=== PATIENT | female | born 1955 | race Caucasian/White ===

== ENCOUNTER → 2016-04-08 | Outpatient (REF) | payer BC ==
[~2016-04-08] MED LIST: ATOR1TAB19 PO; DIGO0.25 PO; DILT120C PO; FLEC50TA PO; LIDO5DIS36 TD; TRAM50TA2 PO; VITA100066 PO; XARE10TA PO
[2016-04-08 13:40] LABS: ALBUMIN 3.6 GM/DL (3.2-5.2); ALBUMIN/GLOBULIN RATIO 1.03 (1.00-1.93); ALKALINE PHOSPHATASE 93 U/L (45-117); ALT/SGPT 29 U/L (12-78); ANION GAP 9 MEQ/L (8-16); AST/SGOT 16 U/L (15-37); BILIRUBIN,TOTAL 0.5 MG/DL (0.2-1.0); BLOOD UREA NITROGEN 12 MG/DL (7-18); CALCIUM LEVEL 8.7 MG/DL (8.8-10.2); CARBON DIOXIDE LEVEL 30 MEQ/L (21-32); CHLORIDE LEVEL 103 MEQ/L (98-107); CHOLESTEROL LEVEL 196 MG/DL (<200); CREATININE FOR GFR 0.81 MG/DL (0.55-1.02); FREE T4 0.82 NG/DL (0.76-1.46); GLOMERULAR FILTRATION RATE > 60.0 (>45); GLUCOSE, FASTING 90 MG/DL (80-110); POTASSIUM SERUM 4.8 MEQ/L (3.5-5.1); SODIUM LEVEL 142 MEQ/L (136-145); TOTAL PROTEIN 7.1 GM/DL (6.4-8.2); TRIGLYCERIDES LEVEL 265 MG/DL (<150)
== END ==
LOC: M SFHCPLAZ 08:10
PROVIDERS: ATTEND Nurse Practitioner Family
DX: E78.00 Pure hypercholesterolemia, unspecified (principal); R53.83 Other fatigue

== ENCOUNTER → 2016-07-25 | Outpatient (CLI) | payer BC ==
--- NOTE | 2016-07-25 13:49 | REP ---
Lumbar spine five views: Comparisons 05/23 2015. Vertebral body heights and alignment are normal and unchanged. There are no vertebral body compression deformities. There is moderate degenerative disc disease at L2-3, unchanged. Of the disc spaces otherwise are unremarkable. There is no spondylolysis or spondylolisthesis. There is mild facet osteoarthritis, unchanged. The sacroiliac articulations and pedicles are unremarkable and unchanged. The mild scoliosis identified previously is no longer present. Impression: L2-3 degenerative disc disease. Mild facet osteoarthritis. Signed by Kenneth Alvarez MD 07/25/2016 01:40 P
== END ==
LOC: M WUC 12:46
PROVIDERS: ATTEND Physician Assistant
DX: M54.5 Low back pain (principal)

== ENCOUNTER → 2016-10-21 | Outpatient (CLI) | payer BC ==
[~2016-10-21] MED LIST changes: -LIDO5DIS36 TD; +LIDO5DIS41 TD
[2016-10-21 20:26] LABS: ALBUMIN/GLOBULIN RATIO 1.18 (1.00-1.93); ALKALINE PHOSPHATASE 82 U/L (45-117); ALT/SGPT 28 U/L (12-78); ANION GAP 6 MEQ/L (8-16); AST/SGOT 14 U/L (15-37); BILIRUBIN,TOTAL 0.5 MG/DL (0.2-1.0); BLOOD UREA NITROGEN 13 MG/DL (7-18); CALCIUM LEVEL 9.2 MG/DL (8.8-10.2); CARBON DIOXIDE LEVEL 28 MEQ/L (21-32); CHLORIDE LEVEL 105 MEQ/L (98-107); CREATININE FOR GFR 0.78 MG/DL (0.55-1.02); GLOMERULAR FILTRATION RATE > 60.0 (>45); GLUCOSE, FASTING 80 MG/DL (80-110); POTASSIUM SERUM 4.5 MEQ/L (3.5-5.1); SODIUM LEVEL 139 MEQ/L (136-145); TOTAL PROTEIN 7.4 GM/DL (6.4-8.2)
== END ==
LOC: M WUC 11:45
PROVIDERS: ATTEND Nurse Practitioner Family
DX: R53.83 Other fatigue (principal); I34.9 Nonrheumatic mitral valve disorder, unspecified; I48.0 Paroxysmal atrial fibrillation; E78.00 Pure hypercholesterolemia, unspecified; E55.9 Vitamin D deficiency, unspecified

== ENCOUNTER → 2017-01-01 | Outpatient (REF) | payer BC ==
[2017-01-01 17:13] LABS: MEAN CORPUSCULAR HEMOGLOBIN 30.3 pg (27.0-33.0); MEAN CORPUSCULAR HGB CONC 33.3 g/dl (32.0-36.5)
== END ==
LOC: M LAB REF 16:07
PROVIDERS: ATTEND Physician Assistant
DX: I48.0 Paroxysmal atrial fibrillation (principal)

== ENCOUNTER → 2017-01-05 | Outpatient (CLI) | payer BC ==
--- NOTE | 2017-01-05 10:38 | REP ---
BILATERAL SCREENING DIGITAL MAMMOGRAM: Comparison is 06/17/2011. The breast parenchyma is moderately dense, unchanged. There has been no interval development of masses, areas of structural distortion or clusters of microcalcifications typical of malignancy. IMPRESSION: There is no evidence of malignancy. BIRADS category 1, negative mammogram. BI-RADS/ACR category 1 mammogram. Negative. Routine annual screening mammography (for women over age 40). The patient should have a repeat mammogram in 1 year. This mammogram was interpreted with the aid of an FDA-approved computer-aided detection system. A. Negative x-ray reports should not delay biopsy if a dominant or clinically suspicious mass is present. B. Four to eight percent of cancers are not identified by x-ray. C. Adenosis and dense breasts may obscure an underlying neoplasm. The patient letter being requested is M1.
== END ==
LOC: M WHC 08:53
PROVIDERS: ATTEND Nurse Practitioner Family
DX: Z12.31 Encounter for screening mammogram for malignant neoplasm of breast (principal)

== ENCOUNTER → 2017-01-05 | Outpatient (REF) | payer BC | LOC: M SFHCWAGY 09:37 | PROVIDERS: ATTEND Nurse Practitioner Family | DX: Z12.4 Encounter for screening for malignant neoplasm of cervix (principal) ==

== ENCOUNTER → 2017-03-25 | Outpatient (REF) | payer BC | LOC: M SFHCPLAZ 07:45 | PROVIDERS: ATTEND Nurse Practitioner Family | DX: E55.9 Vitamin D deficiency, unspecified (principal); I48.0 Paroxysmal atrial fibrillation; R25.1 Tremor, unspecified; Z68.30 Body mass index [BMI] 30.0-30.9, adult; J01.00 Acute maxillary sinusitis, unspecified ==

== ENCOUNTER → 2017-03-26 | Outpatient (CLI) | payer BC ==
[2017-03-26 18:30] LABS: BASO % 0.3 % (0.0-1.0); EOS # 0.1 10^3/uL (0.0-0.50); EOS % 1.8 % (0.0-3.0); IMMATURE GRANULOCYTE % 0.3 % (0-0); LYMPH # 3.1 10^3/uL (1.5-4.5); LYMPH % 46.8 % (24.0-44.0); MEAN CORPUSCULAR HEMOGLOBIN 30.2 pg (27.0-33.0); MEAN CORPUSCULAR HGB CONC 33.2 g/dl (32.0-36.5); MEAN CORPUSCULAR VOLUME 91.1 fl (80.0-96.0); MONO # 0.7 10^3/uL (0.0-0.8); MONO % 11.1 % (0.0-5.0); NEUTROPHILS # 2.6 10^3/uL (1.8-7.7); NEUTROPHILS % 39.7 % (36.0-66.0); PLATELET COUNT, AUTOMATED 319 10^3/uL (150-450); RED CELL DISTRIBUTION WIDTH 13.5 % (11.5-14.5); WHITE BLOOD COUNT 6.6 10^3/uL (4.0-10.0)
[2017-03-26 18:54] LABS: ALBUMIN 3.7 GM/DL (3.2-5.2); ALBUMIN/GLOBULIN RATIO 0.97 (1.00-1.93); ALKALINE PHOSPHATASE 92 U/L (45-117); ALT/SGPT 30 U/L (12-78); ANION GAP 5 MEQ/L (8-16); AST/SGOT 22 U/L (7-37); BILIRUBIN,TOTAL 0.3 MG/DL (0.2-1.0); BLOOD UREA NITROGEN 13 MG/DL (7-18); CALCIUM LEVEL 8.5 MG/DL (8.8-10.2); CARBON DIOXIDE LEVEL 33 MEQ/L (21-32); CHLORIDE LEVEL 103 MEQ/L (98-107); CREATININE FOR GFR 0.84 MG/DL (0.55-1.02); DIGOXIN LEVEL 0.8 NG/ML (0.5-2.0); FREE T4 0.93 NG/DL (0.76-1.46); GLOMERULAR FILTRATION RATE > 60.0 (>45); GLUCOSE, FASTING 88 MG/DL (80-110); POTASSIUM SERUM 4.5 MEQ/L (3.5-5.1); SODIUM LEVEL 141 MEQ/L (136-145); TOTAL PROTEIN 7.5 GM/DL (6.4-8.2)
== END ==
LOC: M WUC 16:49
PROVIDERS: ATTEND Nurse Practitioner Family
DX: J01.00 Acute maxillary sinusitis, unspecified (principal); R25.1 Tremor, unspecified; Z68.30 Body mass index [BMI] 30.0-30.9, adult; E55.9 Vitamin D deficiency, unspecified; I48.0 Paroxysmal atrial fibrillation
CPT/HCPCS: 36415; 80053; 80162; 82306; 84439; 84443; 85025; G0480

== ENCOUNTER → 2017-10-15 | Outpatient (REF) | payer BC | LOC: M SFHCPLAZ 15:18 | DX: R22.1 Localized swelling, mass and lump, neck (principal) | CPT/HCPCS: G0463 ==

== ENCOUNTER → 2017-10-25 | Outpatient (CLI) | payer BC ==
[~2017-10-25] MED LIST changes: -ATOR1TAB19 PO; -DIGO0.25 PO; -DILT120C PO; -FLEC50TA PO; -LIDO5DIS41 TD; +LIDOCAINE 1% MDV 20ML VIAL As Ordered; -TRAM50TA2 PO; -VITA100066 PO; -XARE10TA PO
== END ==
LOC: M RAD 16:30
DX: R22.1 Localized swelling, mass and lump, neck (principal); M25.541 Pain in joints of right hand; M25.542 Pain in joints of left hand
CPT/HCPCS: 73130

== ENCOUNTER → 2017-10-29 | Outpatient (CLI) | payer BC ==
[2017-10-29 17:09] LABS: BASO # 0.1 10^3/uL (0.0-0.2); BASO % 0.6 % (0.0-1.0); EOS # 0.3 10^3/uL (0.0-0.50); EOS % 2.8 % (0.0-3.0); HEMATOCRIT 41.4 % (36.0-47.0); HEMOGLOBIN 13.9 g/dl (12.0-15.5); IMMATURE GRANULOCYTE % 0.3 % (0-3.0); LYMPH # 3.1 10^3/uL (1.5-4.5); LYMPH % 33.8 % (24.0-44.0); MEAN CORPUSCULAR HEMOGLOBIN 30.5 pg (27.0-33.0); MEAN CORPUSCULAR HGB CONC 33.6 g/dl (32.0-36.5); MONO # 0.7 10^3/uL (0.0-0.8); MONO % 7.8 % (0.0-5.0); NEUTROPHILS # 5.1 10^3/uL (1.8-7.7); NEUTROPHILS % 54.7 % (36.0-66.0); PLATELET COUNT, AUTOMATED 378 10^3/uL (150-450); RED BLOOD COUNT 4.55 10^6/uL (4.00-5.40); RED CELL DISTRIBUTION WIDTH 14.2 % (11.5-14.5); WHITE BLOOD COUNT 9.2 10^3/uL (4.0-10.0)
== END ==
LOC: M WUC 12:48
DX: R22.1 Localized swelling, mass and lump, neck (principal)
CPT/HCPCS: 85025

== ENCOUNTER → 2017-11-12 | Outpatient (CLI) | payer BC ==
[~2017-11-12] MED LIST changes: +ISOVUE-370 76% 100ML VIAL (Q9967) As Ordered; -LIDOCAINE 1% MDV 20ML VIAL As Ordered
== END ==
LOC: M RAD 09:04
DX: R22.1 Localized swelling, mass and lump, neck (principal); M47.892 Other spondylosis, cervical region
CPT/HCPCS: Q9967

== ENCOUNTER → 2018-04-08 | Outpatient (CLI) | payer BC ==
[~2018-04-08] MED LIST changes: +ATOR1TAB19 PO; +DIGO0.25 PO; +DILT120C77 PO; +FLEC50HA PO; -ISOVUE-370 76% 100ML VIAL (Q9967) As Ordered; +LIDO5DIS41 TD; +TRAM50TA2 PO; +VITA100066 PO; +XARE10TA PO
--- NOTE | 2018-04-08 12:52 | REP ---
Pelvic sonography: History: Postmenopausal bleeding. Findings: Transabdominal and transvaginal scanning are performed. Uterine dimensions are normal at 6.5 x 3.2 x 4.9 cm. Endometrial echo is poorly defined but measures up to 12 mm in thickness which is abnormal. No focal uterine mass is seen. No free fluid is noted. Visualized bladder valles are smooth. Normal ovaries are seen. Right ovary measures 2.5 x 1.6 x 1.2 cm. Left ovary dimensions are 2.5 x 0.9 x 1.9 cm. Doppler flow is normal in both ovaries with resistive indices recorded at 0.40 on the right and 0.44 on the left. Impression: Mild thickening of the endometrium noted in this postmenopausal female. Endometrial hyperplasia/neoplasia cannot be excluded. Otherwise negative.
== END ==
LOC: M WHC 08:11
PROVIDERS: ATTEND Nurse Practitioner Family
DX: N95.0 Postmenopausal bleeding (principal); R10.32 Left lower quadrant pain

== ENCOUNTER → 2018-04-18 | Outpatient (REF) | payer BC | LOC: M SFHCWAGY 13:22 | PROVIDERS: ATTEND Nurse Practitioner Family | DX: N95.0 Postmenopausal bleeding (principal) ==

== ENCOUNTER → 2018-05-24 | Outpatient (CLI) | payer BC ==
--- NOTE | 2018-05-24 16:15 | REPMRS ---
Patient History The patient states she had a clinical breast exam in 05/2018. Patient is postmenopausal. No known family history of cancer. No Hormone Replacement Therapy Digital Woman Screen Mammo: May 24, 2018 - Exam #: [id number] Bilateral CC and MLO view(s) were taken. Technologist: Alicia Rios, Technologist Prior study comparison: January 05, 2017, digital woman screen mammo performed at [facility]. December 24, 2015, digital woman screen mammo performed at [facility]. FINDINGS: The breast tissue is heterogeneously dense. This may lower the sensitivity of mammography. There has been no change in the appearance of the mammogram from the prior studies. There is a moderate amount of residual fibroglandular tissue which is fairly symmetric. There is no interval development of dominant mass, architectural distortion, or clustered microcalcification typical of malignancy. Stable skin lesion projects over the right upper inner quadrant. 3-D tomosynthesis shows no additional findings. The patient's Tyrer-Cuzick lifetime risk assessment score is 5 %. No significant changes when compared with prior studies. Assessment: BI-RADS/ACR category 2 mammogram. Benign Findings. Recommendation Routine screening mammogram in 1 year (for women over age 40). This mammogram was interpreted with the aid of an FDA-approved computer-aided dectection system. A. Negative x-ray reports should not delay biopsy if a dominant or clinically suspicious mass is present. B. Four to eight percent of cancers are not identified by mammography. C. Adenosis and dense breast may obscure an underlying neoplasm. Electronically Signed By: Elliot Morales MD 05/24/18 [id number]
== END ==
LOC: M WHC 10:46
PROVIDERS: ATTEND Nurse Practitioner Family
DX: Z12.31 Encounter for screening mammogram for malignant neoplasm of breast (principal)

== ENCOUNTER → 2018-06-22 | Outpatient (CLI) | payer BC ==
[~2018-06-22] MED LIST changes: +LANO62.5 PO
[2018-06-22 14:22] LABS: HEMATOCRIT 42.9 % (36.0-47.0); HEMOGLOBIN 14.2 g/dl (12.0-15.5); MEAN CORPUSCULAR HGB CONC 33.1 g/dl (32.0-36.5); MEAN CORPUSCULAR VOLUME 90.5 fl (80.0-96.0); PLATELET COUNT, AUTOMATED 348 10^3/uL (150-450); RED BLOOD COUNT 4.74 10^6/uL (4.00-5.40); WHITE BLOOD COUNT 8.1 10^3/uL (4.0-10.0)
[2018-06-22 14:32] LABS: ALBUMIN 3.6 GM/DL (3.2-5.2); ALT/SGPT 25 U/L (12-78); BILIRUBIN,TOTAL 0.6 MG/DL (0.2-1.0); BLOOD UREA NITROGEN 14 MG/DL (7-18); CALCIUM LEVEL 9.1 MG/DL (8.8-10.2); CARBON DIOXIDE LEVEL 31 MEQ/L (21-32); CHLORIDE LEVEL 107 MEQ/L (98-107); CHOLESTEROL LEVEL 190 MG/DL (<200); CHOLESTEROL RISK RATIO 4.418 (<5); CREATININE FOR GFR 0.83 MG/DL (0.55-1.30); GLOMERULAR FILTRATION RATE > 60.0 (>45); GLUCOSE, FASTING 95 MG/DL (70-100); HDL CHOLESTEROL 43 MG/DL (>40); LDL CHOLESTEROL 116 MG/DL (<100); MAGNESIUM LEVEL 2.3 MG/DL (1.8-2.4); NON-HDL-C 147 MG/DL; POTASSIUM SERUM 4.8 MEQ/L (3.5-5.1); SODIUM LEVEL 143 MEQ/L (136-145); TOTAL PROTEIN 6.9 GM/DL (6.4-8.2); TRIGLYCERIDES LEVEL 154 MG/DL (<150)
== END ==
LOC: M WUC 08:33
PROVIDERS: ATTEND Physician Assistant
DX: I48.0 Paroxysmal atrial fibrillation (principal); E78.2 Mixed hyperlipidemia

== ENCOUNTER 2018-06-30 10:35 | Day surgery (SDC) | payer BC ==
[~2018-06-30] VITALS: Ht 177.8 cm; Wt 95.7 kg
[~2018-06-30 10:35] MED LIST changes: +LIDOCAINE 1% MDV 20ML VIAL SQ PRN; +LR 1,000 ML IV ONE
[2018-06-30 11:22] LABS: INR 1.02; PROTHROMBIN TIME 13.5 SECONDS (12.1-14.4)
[2018-06-30 11:23] LABS: PARTIAL THROMBOPLASTIN TIME 28.5 SECONDS (25.4-37.6)
[2018-06-30] MEDS ORDERED: LIDOCAINE 2% INJ 100 MG/5 ML SDV (FOR ANES.) As Ordered ONE (13:26)
[2018-06-30] MEDS ORDERED: fentaNYL 100 MCG/2 ML INJECTION (J3010) As Ordered ONE (13:26)
[2018-06-30] MEDS ORDERED: MIDAZOLAM INJ 2 MG/2 ML VIAL (J2250) As Ordered ONE (13:26)
[2018-06-30] MEDS ORDERED: PROPOFOL 200 MG/20 ML VIAL As Ordered ONE (13:26)
[2018-06-30] MEDS ORDERED: dexameTHASONE 4 MG/ML 1ML VIAL (J1100) As Ordered ONE (13:26)
[2018-06-30] MEDS ORDERED: ONDANSETRON 4MG/2ML VIAL (J2405) As Ordered ONE ×2 (13:27→14:17)
[2018-06-30] MEDS ORDERED: PERCOCET 5MG/325MG TAB As Ordered ONE (14:17)
[2018-06-30] MEDS ORDERED: fentaNYL 100 MCG/2 ML INJECTION (J3010) IV PRN (14:30)
[2018-06-30] MEDS ORDERED: ONDANSETRON 4MG/2ML VIAL (J2405) IV PRN (14:30)
[2018-06-30] MEDS ORDERED: LR 1,000 ML IV SCH ×2 (14:30)
[2018-06-30] MEDS ORDERED: PERCOCET 5MG/325MG TAB PO PRN (14:30)
[2018-06-30] MEDS ORDERED: IBUPROFEN 600 MG TAB PO PRN (14:30)
[2018-06-30] MEDS ORDERED: KETOROLAC 30 MG/ML VIAL (J1885) As Ordered ONE (14:42)
[2018-06-30] MEDS ORDERED: KETOROLAC 30 MG/ML VIAL (J1885) IV PRN (15:00)
[2018-06-30 15:05] VITALS: BP 153/72
--- NOTE | 2018-07-01 09:29 | RO ---
DATE OF PROCEDURE: 06/30/2018 PREPROCEDURE DIAGNOSIS: Post menopausal bleeding with abnormal sonogram. POSTPROCEDURE DIAGNOSIS: Post menopausal bleeding with abnormal sonogram. PROCEDURE: Dilation and curettage with MyoSure resection. SURGEON: Dr. Margot Garcia. LOGISTICIAN: None. ANESTHESIA: Laryngeal mask anesthesia (LMA). FINDINGS: Reassuring endometrial cavity. DESCRIPTION OF PROCEDURE: Elo was brought to the operating room where sufficient LMA anesthesia was induced and she was prepped, draped and positioned in the normal fashion. The bladder emptied and the anterior aspect of the cervix grasped with a single tooth tenaculum. This uterus would be assessable from the below should that be necessary. The cervix was carefully dilated and the hysteroscope introduced. A normal endometrial contour with the exception of a minor anterior midline, sort of deviation was noted. This could be the distortion of a broad-based fibroid or simple the patient's own anatomy. There were no obvious polyps or vascular lesions or ulcerations of the endometrium. There was a little bit of erythema consistent with patient's history but really a fairly thin atrophic endometrium as expected. Normal tubal ostia were seen and the cervix is very much normal as well. Given the scant tissue and that broad-based deviation anteriorly, the MyoSure light was used to resect that area. It does appear kind of fibrous, so it could be fibroid or it could just be the patient's uterus is shaped in that fashion but it was readily resected and no undue bleeding was encountered we also resected around the rest of the endometrium and tried to optimize are sample in that fashion so that we could be confident for pathology. We also, after resecting with the MyoSure light, a couple of passes with the curet as well and all of that tissue went to the pathologist for evaluation. The hysteroscopy dilation and curettage was completed. ESTIMATED BLOOD LOSS: May be 4 mL. FLUID REPLACEMENT: Crystalloid. SPECIMEN: Endometrium. COMPLICATIONS: None. CONDITION AND DISPOSITION: Elo tolerated the procedure well and was recovering in the recovery room in good condition.
== END 2018-06-30 15:35 | disposition home or self-care (01) ==
LOC: M SDC 10:35
PROVIDERS: ATTEND Obstetrics & Gynecology
DX: N95.0 Postmenopausal bleeding (principal); R93.5 Abnormal findings on diagnostic imaging of other abdominal regions, including retroperitoneum; I48.0 Paroxysmal atrial fibrillation; E78.5 Hyperlipidemia, unspecified; G47.33 Obstructive sleep apnea (adult) (pediatric); L40.9 Psoriasis, unspecified; I34.1 Nonrheumatic mitral (valve) prolapse; I77.810 Thoracic aortic ectasia; E55.9 Vitamin D deficiency, unspecified; M12.9 Arthropathy, unspecified; R32 Unspecified urinary incontinence; R06.83 Snoring; Z88.8 Allergy status to other drugs, medicaments and biological substances; Z79.899 Other long term (current) drug therapy; Z79.01 Long term (current) use of anticoagulants; Z86.19 Personal history of other infectious and parasitic diseases; Z78.0 Asymptomatic menopausal state; Z87.891 Personal history of nicotine dependence
CPT/HCPCS: 36415; 58558; 85610; 85730; 88305; J1100; J1885; J2250; J2405; J3010

== ENCOUNTER → 2018-08-18 | Outpatient (REF) | payer BC ==
[~2018-08-18] MED LIST changes: -LIDOCAINE 1% MDV 20ML VIAL SQ PRN; -LR 1,000 ML IV ONE
[2018-08-18 12:27] LABS: ALBUMIN 3.6 GM/DL (3.2-5.2); ALT/SGPT 29 U/L (12-78); BILIRUBIN,TOTAL 0.5 MG/DL (0.2-1.0); BLOOD UREA NITROGEN 12 MG/DL (7-18); CALCIUM LEVEL 8.8 MG/DL (8.8-10.2); CARBON DIOXIDE LEVEL 30 MEQ/L (21-32); CHLORIDE LEVEL 104 MEQ/L (98-107); CHOLESTEROL LEVEL 186 MG/DL (<200); CHOLESTEROL RISK RATIO 4.428 (<5); CREATININE FOR GFR 0.78 MG/DL (0.55-1.30); GLOMERULAR FILTRATION RATE > 60.0 (>45); GLUCOSE, FASTING 100 MG/DL (70-100); HDL CHOLESTEROL 42 MG/DL (>40); LDL CHOLESTEROL 96 MG/DL (<100); NON-HDL-C 144 MG/DL; POTASSIUM SERUM 4.6 MEQ/L (3.5-5.1); SODIUM LEVEL 139 MEQ/L (136-145); TOTAL PROTEIN 7.2 GM/DL (6.4-8.2); TRIGLYCERIDES LEVEL 241 MG/DL (<150)
[2018-08-19 09:55] LABS: RUBELLA IgG QUALITATIVE IMMUNE (IMMUNE)
[2018-08-20 08:06] LABS: MUMPS VIRUS IgG ANTIBODY 21.1 AU/mL (Immune >10.9); RUBEOLA IgG ANTIBODY >300.0 AU/mL (Immune >29.9)
== END ==
LOC: M SFHCPLAZ 08:52
PROVIDERS: ATTEND Nurse Practitioner Family
DX: Z78.9 Other specified health status (principal)

== ENCOUNTER → 2019-04-07 | Outpatient (REF) | payer BC ==
[2019-04-07 17:28] LABS: HEMATOCRIT 43.6 % (36.0-47.0); HEMOGLOBIN 14.3 g/dl (12.0-15.5); MEAN CORPUSCULAR HEMOGLOBIN 30.2 pg (27.0-33.0); MEAN CORPUSCULAR HGB CONC 32.8 g/dl (32.0-36.5); MEAN CORPUSCULAR VOLUME 92.2 fl (80.0-96.0); PLATELET COUNT, AUTOMATED 378 10^3/uL (150-450); RED BLOOD COUNT 4.73 10^6/uL (4.00-5.40); WHITE BLOOD COUNT 9.1 10^3/uL (4.0-10.0)
[2019-04-07 17:53] LABS: C REACTIVE PROTEIN QUANTITATIV 0.86 MG/DL (0.00-0.30); FREE T4 0.83 NG/DL (0.76-1.46); RHEUMATOID FACTOR QUANT < 10.0 IU/ML (<15.0)
[2019-04-07 19:33] LABS: ERYTHROCYTE SEDIMENTATION RATE 16 mm/hr (0-30)
[2019-04-11 00:06] LABS: ANA (HEP2) Negative (.)
== END ==
LOC: M SFHCPLAZ 15:35
PROVIDERS: ATTEND Physician Assistant
DX: L65.9 Nonscarring hair loss, unspecified (principal); M25.449 Effusion, unspecified hand

== ENCOUNTER → 2019-06-01 | Outpatient (REF) | payer BC | LOC: M SFHCWAGY 13:13 | PROVIDERS: ATTEND Nurse Practitioner Family | DX: Z12.4 Encounter for screening for malignant neoplasm of cervix (principal) | CPT/HCPCS: 87624; G0123 ==

== ENCOUNTER → 2019-06-01 | Outpatient (CLI) | payer BC | LOC: M WHC 08:51 | PROVIDERS: ATTEND Physician Assistant | DX: Z13.820 Encounter for screening for osteoporosis (principal) ==

== ENCOUNTER → 2019-06-01 | Outpatient (CLI) | payer BC ==
--- NOTE | 2019-06-01 10:25 | REPMRS ---
Patient History The patient states she had a clinical breast exam in 05/2019. No known family history of cancer. No Hormone Replacement Therapy Digital Woman Screen Mammo: June 01, 2019 - Exam #: [id number] Bilateral CC and MLO view(s) were taken. Technologist: Alicia Rios, Technologist Prior study comparison: May 24, 2018, bilateral digital woman screen mammo performed at [facility]. January 05, 2017, digital woman screen mammo performed at [facility]. December 24, 2015, digital woman screen mammo performed at [facility]. FINDINGS: The breast tissue is heterogeneously dense. This may lower the sensitivity of mammography. There is a moderate amount of heterogeneously dense fibroglandular tissue which is fairly symmetric. There is no interval development of dominant mass, architectural distortion, or grouped microcalcification typical of malignancy. There has been no change in the appearance of the mammogram from the prior studies. 3-D tomosynthesis shows no additional findings. Assessment: BI-RADS/ACR category 1 mammogram. Negative Mammogram. Recommendation Routine screening mammogram of both breasts in 1 year (for women over age 40). This patient's Lifetime Breast Cancer RIsk is estimated at 4.7 %. This mammogram was interpreted with the aid of an FDA-approved computer-aided dectection system. Electronically Signed By: Messi Cyr MD 06/01/19 1150
== END ==
LOC: M WHC 08:46
PROVIDERS: ATTEND Nurse Practitioner Family
DX: Z12.31 Encounter for screening mammogram for malignant neoplasm of breast (principal)

== ENCOUNTER → 2019-08-11 | Outpatient (CLI) | payer BC ==
--- NOTE | 2019-08-11 09:41 | REPPI ---
RIGHT KNEE SERIES: Two views. HISTORY: Right knee pain. FINDINGS: AP and lateral views of the right knee demonstrate normal joint spaces and normal alignment. There is nonarticular spurring at the superior pole the patella on the lateral film consistent with chronic quadriceps tendonitis tendinosis. There is no evidence of joint effusion. There is minimal lipping of the articular margin of the superior pole the patella as well. IMPRESSION: Minimal patellar spurring. Quadriceps tendonitis tendinosis spurring on the superior pole the patella as well. Otherwise negative. No acute abnormality. Electronically Signed by Greg Cyr MD 08/11/2019 12:45 P
== END ==
LOC: M PLAIMG 08:33
PROVIDERS: ATTEND Physician Assistant
DX: M25.761 Osteophyte, right knee (principal)

== ENCOUNTER → 2019-12-25 | Outpatient (CLI) | payer MEDICARE ==
[2019-12-25 10:15] LABS: ALBUMIN 3.5 GM/DL (3.2-5.2); ALT/SGPT 32 U/L (12-78); BILIRUBIN,TOTAL 0.6 MG/DL (0.2-1.0); BLOOD UREA NITROGEN 13 MG/DL (7-18); CALCIUM LEVEL 9.2 MG/DL (8.8-10.2); CARBON DIOXIDE LEVEL 29 MEQ/L (21-32); CHLORIDE LEVEL 105 MEQ/L (98-107); CHOLESTEROL LEVEL 209 MG/DL (<200); CHOLESTEROL RISK RATIO 4.644 (<5); CREATININE FOR GFR 0.88 MG/DL (0.55-1.30); GLOMERULAR FILTRATION RATE > 60.0 (>45); GLUCOSE, FASTING 92 MG/DL (70-100); HDL CHOLESTEROL 45 MG/DL (>40); LDL CHOLESTEROL 116 MG/DL (<100); NON-HDL-C 164 MG/DL; POTASSIUM SERUM 4.7 MEQ/L (3.5-5.1); SODIUM LEVEL 140 MEQ/L (136-145); TRIGLYCERIDES LEVEL 240 MG/DL (<150)
[2019-12-25 11:19] LABS: TOTAL 25(OH) VITAMIN D 27.1 NG/ML (30.0-100.0)
== END ==
LOC: M LAB 08:43
PROVIDERS: ATTEND Physician Assistant
DX: E78.5 Hyperlipidemia, unspecified (principal); E55.9 Vitamin D deficiency, unspecified

== ENCOUNTER → 2020-04-23 | Outpatient (CLI) | payer MEDICARE ==
[2020-04-23 12:10] LABS: HEMATOCRIT 44.1 % (36.0-47.0); HEMOGLOBIN 14.2 g/dl (12.0-15.5); MEAN CORPUSCULAR HEMOGLOBIN 29.6 pg (27.0-33.0); MEAN CORPUSCULAR HGB CONC 32.2 g/dl (32.0-36.5); MEAN CORPUSCULAR VOLUME 92.1 fl (80.0-96.0); PLATELET COUNT, AUTOMATED 384 10^3/uL (150-450); RED BLOOD COUNT 4.79 10^6/uL (4.00-5.40); WHITE BLOOD COUNT 9.1 10^3/uL (4.0-10.0)
[2020-04-23 12:52] LABS: ALBUMIN 3.8 GM/DL (3.2-5.2); ALT/SGPT 29 U/L (12-78); BILIRUBIN,TOTAL 0.6 MG/DL (0.2-1.0); BLOOD UREA NITROGEN 15 MG/DL (7-18); CALCIUM LEVEL 9.4 MG/DL (8.8-10.2); CARBON DIOXIDE LEVEL 32 MEQ/L (21-32); CHLORIDE LEVEL 104 MEQ/L (98-107); CHOLESTEROL LEVEL 209 MG/DL (<200); CHOLESTEROL RISK RATIO 4.446 (<5); CREATININE FOR GFR 0.89 MG/DL (0.55-1.30); GLOMERULAR FILTRATION RATE > 60.0 (>45); GLUCOSE, FASTING 94 MG/DL (70-100); HDL CHOLESTEROL 47 MG/DL (>40); LDL CHOLESTEROL 110 MG/DL (<100); MAGNESIUM LEVEL 2.2 MG/DL (1.8-2.4); NON-HDL-C 162 MG/DL; POTASSIUM SERUM 4.8 MEQ/L (3.5-5.1); SODIUM LEVEL 139 MEQ/L (136-145); TOTAL PROTEIN 7.4 GM/DL (6.4-8.2); TRIGLYCERIDES LEVEL 262 MG/DL (<150)
== END ==
LOC: M WUC 08:52
PROVIDERS: ATTEND Physician Assistant
DX: I48.0 Paroxysmal atrial fibrillation (principal); E78.2 Mixed hyperlipidemia

== ENCOUNTER → 2020-05-26 | Outpatient (CLI) | payer MEDICARE ==
[~2020-05-26] MED LIST changes: +D31000TA2 PO
== END ==
LOC: M LABSMTC 08:19
PROVIDERS: ATTEND Anesthesiology
DX: Z01.818 Encounter for other preprocedural examination (principal); Z11.52 Encounter for screening for COVID-19

== ENCOUNTER 2020-05-31 07:52 | Day surgery (SDC) | payer MEDICARE ==
[~2020-05-31] VITALS: Ht 177.8 cm; Wt 99.8 kg
[~2020-05-31 07:52] MED LIST changes: +NS 1,000 ML IV ONE
--- OUTSIDE RECORDS SUMMARY | 2020-05-31 07:57 | CCD | Continuity of Care Document ---
Author Author Elo NICHOLSON PA-C Organization Unknown Address [address] [place] [address], [place] [place] [address] Phone [phone] Care Team Providers Care Fixed Income Analyst Name Role Phone Shaun Cornell MD AUTM [phone] Kobe Farooq DO AUTM [phone] Shahidpaula David DO AUTM [phone] Porfirio Mario DO AUTM [phone] Joyce Hernández PA-C AUTM [phone] Problems Active Problems Provider Date Paroxysmal atrial fibrillation JUMANA Luico-C Onset: 0 05/28/2016 Mitral valve disorder Chris Turner MD Onset: 07/05/2012 Aortic valve disorder JUMANA Lucio-C Onset: 11/26/2016 Aortic root dilatation JUMANA Lucio-C Onset: 7 Electrocardiogram abnormal Chris Turner MD Onset: 2012 Obstructive sleep apnea syndrome Chris Turner MD Onset: 10/11/2013 Mixed hyperlipidemia JUAMNA Lucio-C Onset: 05/28/2016 Obesity JUMANA Lucio-C Onset: 05/28/2016 Dietary management surveillance Tiffanie Nicholson PA-C Onset: 11/26/2016 Social History Type Date Description Comments Sex Unknown ETOH Use Consumes Wine 1 per week Tobacco Use Start: Unknown End: Unknown Patient is a former smoker Stopped in 1992. Smoked for 15 years. 1ppd Smoking Status Reviewed: 10/26/19 Patient is a former smoker St opped in 1992. Smoked for 15 years. 1ppd Exercise Type/Frequency Does housework twice a w [place] Exercise Type/Frequency Does yardwork twice a we [place] Exercise Type/Frequency Walks sporadically Exercise Limitations Joint Pain Right Ankle , Torn meniscus in right knee Allergies, Adverse Reactions, Alerts Active Allergies Reaction Severity Comments Date Atenolol bradycardia 07/05/2012 Beta Adrenergic Blockers bradycardia 05/2012 Medications Active Medications SIG Qnty Indications Ordering Provide r Date Ibuprofen 200mg Capsules prn Unknown 10/25/2019 Atorvastatin Calcium 10mg Tablets 1 by mouth every day 90tabs E78.2 Chris Turner MD 11/20/2015 Digox 250mcg Tablets Take One Tablet By Mouth Every Day 90tabs I48.0 Chris Turner MD 08/01/2013 Xarelto 20mg Tablets 1 by mouth every day 90tabs I48.0 Chris Turner MD 09/30/2012 Diltiazem HCL ER Coated Beads 120mg Caps ER 24HR 1 by mouth every day 90caps I48.0 Chris Turner MD 0 09/30/2012 Flecainide Acetate 50mg Tablets Take One Tablet By Mouth Twice Daily 180tabs I48.0 Chris Turner MD 0 08/01/2012 Metamucil 0.52gm Capsules 8oz of liq. po 3 times daily as needed Shaun Cornell MD Immunizations Description No Information Available Vital Signs Date Vital Result Comment 10/26/2019 11:23am Weight 223.00 lb Home Weight 225lb Home weight Height 70 inches 5'10" BMI (Body Mass Index) 32.0 kg/m2 Heart Rate 52 /min Regular Respiratory Rate 16 /min BP Systolic Right Arm 118 mmHg sitting, large cuf f BP Diastolic Right Arm 68 mmHg sitting, large cu ff BP Systolic Left Arm 116 mmHg sitting BP Diastolic Left Arm 68 mmHg sitting 04/28/2019 8:19am Weight 218.00 lb Home Weight 220lb home weight Height 70 inches 5'10" BMI (Body Mass Index) 31.3 kg/m2 Heart Rate 54 /min Regular Respiratory Rate 16 /min BP Systolic Right Arm 134 mmHg Sitting, large cuf f BP Diastolic Right Arm 64 mmHg Sitting, large cu ff BP Systolic Left Arm 128 mmHg Sitting BP Diastolic Left Arm 64 mmHg Sitting Results Test Acquired Date Facility Test Result H/L Range Note Comprehensive Metabolic Profil 04/23/2020 [facility] [phone] Glucose, Fasting 94 mg/dL Normal 70-100 Blood Urea Nitrogen 15 mg/dL Normal 7-18 Creatinine For GFR 0.89 mg/dL Normal 0.55-1.30 Glomerular Filtration Rate > 60.0 Normal >45 1 Sodium Level 139 mEq/L Normal 136-145 Potassium Serum 4.8 mEq/L Normal 3.5-5.1 Chloride Level 104 mEq/L Normal 98-107 Carbon Dioxide Level 32 mEq/L Normal 21-32 Anion Gap 3 mEq/L Low 8-16 Calcium Level 9.4 mg/dL Normal 8.8-10.2 Ast/Sgot 12 U/L Normal 7-37 Alt/SGPT 29 U/L Normal 12-78 Alkaline Phosphatase 91 U/L Normal 45-117 Bilirubin,Total 0.6 mg/dL Normal 0.2-1.0 Total Protein 7.4 GM/DL Normal 6.4-8.2 Albumin 3.8 GM/DL Normal 3.2-5.2 Albumin/Globulin Ratio 1.1 Low 1.2-2.2 Lipid Panel 04/23/2020 [facility] [phone] Triglycerides Level 262 mg/dL High <150 Cholesterol Level 209 mg/dL High <200 HDL Cholesterol 47 mg/dL Normal >40 LDL Cholesterol 110 mg/dL High <100 Non-HDL-C 162 mg/dL Normal Cholesterol Risk Ratio 4.446 Normal <5 Laboratory test finding 04/23/2020 [facility] [phone] Thyroid Stimulating Hormone 2.670 uIU/ML Normal 0. 358-3.740 Magnesium Level 2.2 mg/dL Normal 1.8-2.4 Complete Blood Count 04/23/2020 [facility] enter [phone] White Blood Count 9.1 10 Normal 4.0-10.0 Red Blood Count 4.79 10 Normal 4.00-5.40 Hemoglobin 14.2 g/dL Normal 12.0-15.5 Hematocrit 44.1 % Normal 36.0-47.0 Mean Corpuscular Volume 92.1 fl Normal 80.0-96.0 Mean Corpuscular Hemoglobin 29.6 pg Normal 27.0-33.0 Mean Corpuscular HGB Conc 32.2 g/dL Normal 32.0-36.5 Red Cell Distribution Width 13.8 % Normal 11.5-14.5 Platelet Count, Automated 384 10 Normal 150-450 Nucleated Red Blood Cell % 0.0 % Normal 0-0 1 Units are mL/min/1.73 m2 Chronic Kidney Disease Staging per NKF: Stage I & II GFR >=60 Normal to Mildly Decreased Stage III GFR 30-59 Moderately Decreased Stage IV GFR 15-29 Severely Decreased Stage V GFR <15 Very Little GFR Left ESRD GFR <15 on SHIFT SUPERVISOR Procedures Date Code Description Status 10/26/2019 06309 ECG 12-Lead Completed Medical Devices Description No Information Available Encounters Type Date Location Provider Dx Diagnosis Office Visit 10/26/2019 11:30a Main Office Tiffanie Nicholson PA-C I48.0 Paroxysmal atrial fibrillation I34.0 Nonrheumatic mitral (valve) insufficiency I35.1 Nonrheumatic aortic (valve) insufficiency I77.810 Thoracic aortic ectasia R94.31 Abnormal electrocardiogram [ ECG] [EKG] E78.2 Mixed hyperlipidemia G47.33 Obstructive sleep apnea (dru lt) (pediatric) Z71.3 Dietary counseling and surve illance Assessments Date Code Description Provider 10/26/2019 I48.0 Paroxysmal atrial fibrillation Lory Nicholson PA-C 10/26/2019 I34.0 Nonrheumatic mitral (valve) insu fficiency JUMANA Lucio-C 10/26/2019 I35.1 Nonrheumatic aortic (valve) insu fficiency Tiffanie Nicholson PA-C 10/26/2019 I77.810 Thoracic aortic ectasia KAVIN IzquierdoC 10/26/2019 R94.31 Abnormal electrocardiogram [ECG] [EKG] Tiffanie Nicholson PA-C 10/26/2019 E78.2 Mixed hyperlipidemia KAVIN CifuentesC 10/26/2019 G47.33 Obstructive sleep apnea (adult) (pediatric) Tiffanie Nicholson PA-C 10/26/2019 Z71.3 Dietary counseling and surveilla nce Tiffanie Nicholson PA-C Plan of Treatment Future Appointment(s):* 04/30/2020 8:15 am - Tiffanie Nicholson PA-C at Main Office 10/26/2019 - Tiffanie Nicholson PA-C* I48.0 Paroxysmal atrial fibrillation * I34.0 Nonrheumatic mitral (valve) insufficiency * I35.1 Nonrheumatic aortic (valve) insufficiency * I77.810 Thoracic aortic ectasia * R94.31 Abnormal electrocardiogram [ECG] [EKG] * E78.2 Mixed hyperlipidemia * G47.33 Obstructive sleep apnea (adult) (pediatric) * Z71.3 Dietary counseling and surveillance* Recommendations:* Follow a low fat/low cholesterol diet and do at least 30 minutes of sustained aerobic activity daily. * All * Follow up:* 6 month follow up. Functional Status Functional Condition Comment Date Status Independent with all ADL's Activ e Mental Status Description No Information Available Referrals Description No Information Available
--- OUTSIDE RECORDS SUMMARY | 2020-05-31 07:57 | CCD | Continuity of Care Document ---
Author Author Elo NICHOLSON PA-C Organization Unknown Address [address] [place] [address], [facility] [place] [address] Phone [phone] Care Team Providers Care Real Estate Portfolio Manager Name Role Phone Shaun Cornell MD AUTM [phone] Kobe Farooq DO AUTM [phone] Shahidpaula David DO AUTM [phone] Porfirio Mario DO AUTM [phone] Joyce Hernández PA-C AUTM [phone] Problems Active Problems Provider Date Paroxysmal atrial fibrillation JUMANA Lucio-C Onset: 0 05/28/2016 Mitral valve disorder Chris Turner MD Onset: 07/05/2012 Aortic valve disorder JUMANA Lucio-C Onset: 11/26/2016 Aortic root dilatation JUMANA Lucio-C Onset: 7 Electrocardiogram abnormal Chris Turner MD Onset: 2012 Obstructive sleep apnea syndrome Chris Turner MD Onset: 10/11/2013 Mixed hyperlipidemia JUMANA Lucio-C Onset: 05/28/2016 Obesity JUMANA Lucio-C Onset: [...] Exercise Type/Frequency Does housework twice a w [place] Exercise Type/Frequency Does yardwork twice a we [...] H/L Range Note Comprehensive Metabolic Profil 04/23/2020 [facility] [phone] Glucose, Fasting 94 mg/dL Normal 70-100 Blood [...] Ratio 1.1 Low 1.2-2.2 Lipid Panel 04/23/2020 [facility] nter [phone] Triglycerides Level 262 mg/dL High <150 Cholesterol Level 209 mg/dL High <200 HDL Cholesterol 47 mg/dL Normal >40 LDL Cholesterol 110 mg/dL High <100 Non-HDL-C 162 mg/dL Normal Cholesterol Risk Ratio 4.446 Normal <5 Laboratory test finding 04/23/2020 [facility] [phone] Thyroid Stimulating Hormone 2.670 uIU/ML Normal 0. 358-3.740 Magnesium Level 2.2 mg/dL Normal 1.8-2.4 Complete Blood Count 04/23/2020 [facility] enter [phone] White Blood Count 9.1 10 Normal 4.0-10.0 [...] Little GFR Left ESRD GFR <15 on [employer] STATE TE[employer] Procedures Date Code Description Status 10/26/2019 25867 ECG 12-Lead Completed Medical Devices Description No [...]
--- OUTSIDE RECORDS SUMMARY | 2020-05-31 07:57 | CCD | Continuity of Care Document ---
Author Author Elo NICHOLSON PA-C Organization Unknown Address [address] [place] [address], [facility] [place] [address] Phone [phone] Care Team Providers Care Dragline Mechanic Name Role Phone Shaun Cornell MD AUTM [phone] Kobe Farooq DO AUTM [phone] Shahidpaula David DO AUTM [phone] Porfirio Mario DO AUTM [phone] Joyce Hernández PA-C AUTM [phone] Problems Active Problems Provider Date Paroxysmal atrial [...] Exercise Type/Frequency Does housework twice a w [place] Exercise Type/Frequency Does yardwork twice a we [...] H/L Range Note Comprehensive Metabolic Profil 04/23/2020 [facility] [phone] Glucose, Fasting 94 mg/dL Normal 70-100 Blood [...] Ratio 1.1 Low 1.2-2.2 Lipid Panel 04/23/2020 [facility] nter [phone] Triglycerides Level 262 mg/dL High <150 Cholesterol Level 209 mg/dL High <200 HDL Cholesterol 47 mg/dL Normal >40 LDL Cholesterol 110 mg/dL High <100 Non-HDL-C 162 mg/dL Normal Cholesterol Risk Ratio 4.446 Normal <5 Laboratory test finding 04/23/2020 [facility] [phone] Thyroid Stimulating Hormone 2.670 uIU/ML Normal 0. 358-3.740 Magnesium Level 2.2 mg/dL Normal 1.8-2.4 Complete Blood Count 04/23/2020 [facility] enter [phone] White Blood Count 9.1 10 Normal 4.0-10.0 [...] Little GFR Left ESRD GFR <15 on [employer] OPERATOR Procedures Date Code Description Status 10/26/2019 02528 ECG 12-Lead Completed Medical Devices Description No [...]
--- OUTSIDE RECORDS SUMMARY | 2020-05-31 07:57 | CCD | Continuity of Care Document ---
Author Author Elo NICHOLSON PA-C Organization Unknown Address [address] [place] [address], [facility] [place] [address] Phone [phone] Care Team Providers Care Animal Therapist Name Role Phone Shaun Cornell MD AUTM [phone] Kobe Farooq DO AUTM [phone] Shahidpaula David DO AUTM [phone] Porfirio Mario DO AUTM [phone] Joyce Hernández PA-C AUTM [phone] Problems Active Problems Provider Date Paroxysmal atrial [...] for 15 years. 1ppd Smoking Status Reviewed: 04/30/20 Patient is a former smoker St opped in 1992. Smoked for 15 years. 1ppd Exercise Type/Frequency Does housework twice a w [place] Exercise Type/Frequency Does yardwork twice a we [...] Available Vital Signs Date Vital Result Comment 04/30/2020 8:05am Weight 222.00 lb Home Weight 225lb Home weight Height 70 inches 5'10" BMI (Body Mass Index) 31.9 kg/m2 Heart Rate 56 /min Regular Respiratory Rate 16 /min BP Systolic Right Arm 122 mmHg sitting, large cuf f BP Diastolic Right Arm 70 mmHg sitting, large cu ff BP Systolic Left Arm 122 mmHg sitting BP Diastolic Left Arm 74 mmHg sitting 10/26/2019 11:23am Weight 223.00 lb Home Weight 225lb Home weight Height 70 inches 5'10" BMI (Body Mass Index) 32.0 kg/m2 Heart Rate 52 /min Regular Respiratory Rate 16 /min BP Systolic Right Arm 118 mmHg sitting, large cuf f BP Diastolic Right Arm 68 mmHg sitting, large cu ff BP Systolic Left Arm 116 mmHg sitting BP Diastolic Left Arm 68 mmHg sitting Results Test Acquired Date Facility Test Result H/L Range Note Comprehensive Metabolic Profil 04/23/[address] [facility] [phone] Glucose, Fasting 94 mg/dL Normal 70-100 Blood [...] Ratio 1.1 Low 1.2-2.2 Lipid Panel 04/23/2020 [facility] nter [phone] Triglycerides Level 262 mg/dL High <150 Cholesterol Level 209 mg/dL High <200 HDL Cholesterol 47 mg/dL Normal >40 LDL Cholesterol 110 mg/dL High <100 Non-HDL-C 162 mg/dL Normal Cholesterol Risk Ratio 4.446 Normal <5 Laboratory test finding 04/23/2020 [facility] [phone] Thyroid Stimulating Hormone 2.670 uIU/ML Normal 0. 358-3.740 Magnesium Level 2.2 mg/dL Normal 1.8-2.4 Complete Blood Count 04/23/2020 [facility] enter [phone] White Blood Count 9.1 10 Normal 4.0-10.0 [...] Little GFR Left ESRD GFR <15 on RADIATION CONTROL SPECIALIST Procedures Date Code Description Status 04/30/2020 72543 ECG 12-Lead Completed Medical Devices Description No Information Available Encounters Type Date Location Provider Dx Diagnosis Office Visit 04/30/2020 8:15a Main Office Tiffanie Nicholson PA-C I48.0 Paroxysmal atrial fibrillation I34.0 Nonrheumatic mitral (valve) insufficiency I35.1 Nonrheumatic aortic (valve) insufficiency R94.31 Abnormal electrocardiogram [ ECG] [EKG] E78.2 Mixed hyperlipidemia G47.33 Obstructive sleep apnea (dru lt) (pediatric) Z71.3 Dietary counseling and surve illance Assessments Date Code Description Provider 04/30/2020 I48.0 Paroxysmal atrial fibrillation K KAVIN ParkerC 04/30/2020 I34.0 Nonrheumatic mitral (valve) insu fficiency KAVIN LucioC 04/30/2020 I35.1 Nonrheumatic aortic (valve) insu fficiency JUMANA Lucio-C 04/30/2020 R94.31 Abnormal electrocardiogram [ECG] [EKG] Tiffanie Nicholson PA-C 04/30/2020 E78.2 Mixed hyperlipidemia Tiffanie england PA-C 04/30/2020 G47.33 Obstructive sleep apnea (adult) (pediatric) Tiffanie Nicholson PA-C 04/30/2020 Z71.3 Dietary counseling and surveilla corae Tiffanie Nicholson PA-C Plan of Treatment Future Appointment(s):* 10/29/2020 8:45 am - Tiffanie Nicholson PA-C at Main Office 04/30/2020 - Tiffanie Nicholson PA-C* I48.0 Paroxysmal atrial fibrillation * I34.0 Nonrheumatic mitral (valve) insufficiency * I35.1 Nonrheumatic aortic (valve) insufficiency * R94.31 Abnormal electrocardiogram [ECG] [EKG] * E78.2 Mixed hyperlipidemia * G47.33 Obstructive sleep apnea (adult) (pediatric) * Z71.3 Dietary counseling and surveillance* Recommendations:* Follow a low fat/low cholesterol diet and do as much aerobic exercise as you can tolerate. * All * Follow up:* 6 month follow up. Functional Status Functional Condition Comment Date Status Independent with all ADL's Activ e Mental Status Description No Information Available Referrals Description No Information Available
--- OUTSIDE RECORDS SUMMARY | 2020-05-31 07:58 | CCD ---
Author Author [facility] Organization [facility] Address Unknown Phone Unavailable Care Team Providers Care Electric Switch Repairer Name Role Phone Joyce Hernández Unavailable PROBLEMS Type Condition ICD9-CM Code [id number] Code Onset Dates Condition S tatus SNOMED Code Notes Problem Pure hypercholesterolemia E78.0 Active 895254 004 Problem Nonrheumatic mitral valve disorder, unspecified I3 4.9 Active 25679176 Problem Fatigue R53.83 Active 65380446 Problem Vitamin D deficiency, unspecified E55.9 Active 52849212 Problem Menopausal and female climacteric states N95.1 Active 755929719 Problem Postmenopausal atrophic vaginitis N95.2 Active 59894250 Problem Lichen sclerosus et atrophicus L90.0 Active 2 2385493 Problem GRISELDA (obstructive sleep apnea) G47.33 Active 78 817294 Problem Hyperlipidemia, unspecified hyperlipidemia type E7 8.5 Active 30277555 Problem BMI 30.0-30.9,adult Z68.30 Active 691845508 Problem Stress incontinence N39.3 Active 82418509 Problem Primary osteoarthritis, left hand M19.042 Active 974192315578989 Problem 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 Activ e 57348017 Problem Primary osteoarthritis, right hand M19.041 Activ e 720185017700021 Problem Neck pain, chronic M54.2 Active 8808232683261 Problem Paroxysmal atrial fibrillation I48.0 Active 2 37409496 Problem Postmenopausal bleeding N95.0 Active 25391121 Problem Thoracic aortic ectasia I77.810 Active 36774383 7688498 Problem Anxiety F41.9 Active 92474441 Problem 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 Active 360287025 ALLERGIES Allergen (clinical drug ingredient) Drug/Non Drug Allergy do cumented on EMR Reaction Allergy Type Onset Date Status beta blockers Rash Drug Allergy Active ENCOUNTERS from 1954 to 2020-04-22 Encounter Location Date Provider Diagnosis [facility] [place] [address] Mar, Joyce Hernández Annual physical exam Z00.00 ; Paroxysmal atrial fibrillation I48.0 ; GRISELDA (obstructive sleep apnea) G47.33 and Hyperlipidemia, unspecified hyperlipidemia type E78.5 IMMUNIZATIONS Vaccine Route Administration Date Status Influenza (6mo & up) Fluzone IM Intramuscular May 07, 2017 Ad ministered Influenza (6mo & up) Fluzone Unknown Jan 05, 2017 Ref used SOCIAL HISTORY Tobacco Use: Social History Observation Description Date Details (start date - stop date) Former Smoker Sex Assigned At : Social History Observation Description Sex Assigned At Unknown Education: Question Answer Notes Level of Education: Finished High School 1 yr. college Audit Question Answer Notes Total Score: 1 Interpretation: Alcohol Education Language: Question Answer Notes Languages spoken: Khmer Denominational: Question Answer Notes Denominational [facility] Question Answer Notes Total Score: 0 Interpretation: No problems reported Alcohol Screening: Question Answer Notes Did you have a drink containing alcohol in the past year? Ye s Points 1 Interpretation Negative How often did you have six or more drinks on one occas ion in the past year? Never (0 points) How many drinks did you have on a typica l day when you were drinking in the past year? 1 or 2 (0 points) How often did you have a drink containing alcohol in t he past year? Monthly or less (1 point) BMI Care Goal Follow-Up Question Answer Notes Above Normal BMI Follow-Up Giving encouragement to exercise Tobacco Use: Question Answer Notes Are you a: former smoker How long has it been since you last smoked? > 10 years REASON FOR REFERRAL No Information VITAL SIGNS Weight 221 lbs Mar, Height 70 in Mar, BMI 31.71 kg/m2 Mar, Heart Rate 70 /min Mar, Respiratory Rate 20 /min Mar, Temperature 97 degrees Fahrenheit Mar, Oximetry 94 Mar, Blood pressure systolic 124 mm Hg Mar, Blood pressure diastolic 72 mm Hg Mar, MEDICATIONS Medication SIG (Take, Route, Frequency, Duration) Notes Start Da te End Date Status Atorvastatin Calcium 10 1 tablet Orally Once a day for 90 Active Xanax 0.25 MG 1 tablet Orally Twice a day for air travel for 2 doses Jul, Not-Taking Lidocaine 5 % 1 patch remove after 12 hours Externally Once a day for 30 Days August, Active Hydrocortisone 1 % 1 application Externally Once a day for 14 da ys Apr, Not-Taking Amoxicillin-Pot Clavulanate 875-125 MG 1 tablet Orally every 12 hrs for 10 day(s) Apr, Not-Taking Vitamin D 2000 UNIT 1 tab Orally once a day Dec, Active Flecainide Acetate 50 MG 1 tablet Orally every 12 hrs Active Diclofenac Sodium 3 % 1 application Transdermal Twice a day for 30 day(s) Apr, Not-Taking Xarelto 20 mg 1 tablet oral once a day Active Diltiazem HCl CR 120 mg 1 capsule on an empty stomac h in the morning Orally Once a day Jul, Active Metamucil 0.52 GM 5 capsules with 8 ounces of liquid as needed Orally daily as needed Not-Taking Atorvastatin Calcium 10 mg 1 tablet Orally Once a day for 90 day(s) Not-Taking Digoxin 0.25 MG 1 tablet Orally Once a day Active Triamcinolone Acetonide 0.025 % 1 application to affec bridger area Externally Twice a day for 14 days then twice a week Jan, Not-Taking PROCEDURES No Information RESULTS No Results REASON FOR VISIT r/s of AWE MEDICAL (GENERAL) HISTORY Type Description Date Medical History PAF converted to NSR 11/1998, Recurred and now chronic A-fib 06/2012 Medical History hx of shingles Medical History Vitamin D deficiency Medical History Hypercholesterolemia Medical History Psoriasis of feet, 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 Medical History GRISELDA - intolerant of CPAP Medical History Echo 07/2012 - mod dilated le ft [facility], LV diastolic dysfunction, mild - mod MR, AV sclerosis; ECHO 07/2016 mild mitral annular thickening with mild insufficiency, mild aortic valvular sclerosis, LVEF 65%, repeat 2 years; 08/21- LVEF- 75%, mild LVF, mild left atrial dilation Medical History July 2012 Treadmill Cardili te - negative for myocardial ischemia, EF 60% Medical History adenomatous colon polyp 10/17, repeat in 5 years (due 2019) Medical History torn right rotator cuff Surgical History appendectomy Surgical History ankle surgery (right) Surgical History pilonidal cyst Surgical History oral surgery 02/2013 Surgical History colonoscopy- 2005- normal; - adenomatous colon polyp, Dr Duong, repeat 5 years; Surgical History arthroscopy for torn meniscus. 03/2016 Surgical History D+C, [facility] Dr. Garcia polyp and simple hy perplasia 06/2018 Goals Section No Information Health Concerns No Information MEDICAL EQUIPMENT No Information MENTAL STATUS No Information FUNCTIONAL STATUS No Information ASSESSMENTS Encounter Date Diagnosis Assessment Notes Treatment Notes Treatm ent Clinical Notes Mar, Annual physical exam (ICD-10 - Z00.00) age appropriate anticipatory guidance given, per USPSTF recommendations; immunizations up to date. discussed plans for implementing improvement in identified areas Mar, Paroxysmal atrial fibrillation (ICD-10 - I48.0) chronic, managed by cardiology Mar, GRISELDA (obstructive sleep apnea) (ICD-10 - G47.33) chronic, controlled currently Mar, Hyperlipidemia, unspecified hyperlipidemia type (ICD-10 - E78.5) based upon updated AHA/ACC cholesterol guidelines 2013, pt's LDL is reduced by current statin tx by sufficient percentage based on 10 year ASCVD risk stratification; no adjustments in statin tx needed Mar, Other Gynecology- pat ient sees yearly- they manage mammograms for her. DEXA- 05/2019. Colonoscopy- last done 2014 w/ repeat in 5 years- sched for 03/2020. PLAN OF TREATMENT Treatment Notes Assessment Notes Clinical Notes Annual physical exam age appropriate ant icipatory guidance given, per USPSTF recommendations; immunizations up to date. discussed plans for implementing improvement in identified areas Paroxysmal atrial fibrillation chronic, managed by cardiology GRISELDA (obstructive sleep apnea) chronic, c ontrolled currently Hyperlipidemia, unspecified hyperlipidemia type based upon updated AHA/ACC cholesterol guidelines 2013, pt's LDL is reduced by current statin tx by sufficient percentage based on 10 year ASCVD risk stratification; no adjustments in statin tx needed Next Appt Details 6 Months Reason: Provider Name:Joyce Hernández, 2020-09-24 08 :15:00 AM, [address] [place], [address], Insurance Providers Payer Name Payer Address Payer Phone Insured Name Patient Relati onship to Insured Coverage Start Date Coverage End Date [employer] MEDICARE [employer] [address] [facility] [phone] DONITA MARQUES
--- OUTSIDE RECORDS SUMMARY | 2020-05-31 07:58 | CCD | Continuity of Care Document ---
Author Author Elo RAMOS [facility] Organization Unknown Address [address], [address] [place] [address] Phone [phone] Care Team Providers Care Printing Services Coordinator Name Role Phone Shaun Cornell M.D. [facility] [phone] Problems Description No Active Problems Social History Type Date Description Comments Sex Unknown ETOH Use 1-2 A Week Tobacco Use Start: Unknown Non Smoker Allergies, Adverse Reactions, Alerts Active Allergies Reaction Severity Comments Date Beta Adrenergic Blockers Medications Active Medications SIG Qnty Indications Ordering Provide r Date Xarelto 20mg Tablets 1 by mouth at dinner Unknown Digoxin 250mcg Tablets once a day Unknown Flecainide Acetate 50mg Tablets twice a day Unknown Diltiazem HCL ER 120mg Caps ER 24HR Daily Unknown Vitamin D3 50mcg (1999 Ut) Capsules daily Unknown Atorvastatin Calcium 10mg Tablets Daily Unknown Immunizations Description No Information Available Vital Signs Date Vital Result Comment 03/26/2020 2:08pm BP Systolic 112 mmHg BP Diastolic 64 mmHg Height 70 inches 5'10" Weight 220.00 lb BMI (Body Mass Index) 31.6 kg/m2 [place] Body Weight 150 lb Weight 99.792 kg BSA (Body Surface Area) 2.17 m2 09/05/2014 9:21am BP Systolic 123 mmHg BP Diastolic 66 mmHg Height 70 inches 5'10" Weight 203.00 lb BMI (Body Mass Index) 29.1 kg/m2 [place] Body Weight 150 lb Weight 92.081 kg BSA (Body Surface Area) 2.10 m2 Results Description No Information Available Procedures Description No Information Available Medical Devices Description No Information Available Encounters Description No Information Available Assessments Date Code Description Provider 03/26/2020 Z12.11 Encounter for screening for sujatha gnant neoplasm of colon Nery Kristi ES Ramos 03/26/2020 Z86.010 Personal history of colonic poly ps Nery Kristi ES Ramos Plan of Treatment 03/26/2020 - Nery Kristi ES Ramos* Z12.11 Encounter for screening for malignant neoplasm of colon * Z86.010 Personal history of colonic polyps * * New Orders:* Colonoscopy, Ordered: 03/26/20 * Comments:* Will arrange for colonoscopy. Reviewed risks and benefits of the procedure, as well as other options, with the patient. Bowel prep procedure was discussed with patient, as well as risks and side effects associated with the bowel prep. A letter will be sent to Dr. Turner requesting permission for the patient to hold Xarelto prior to the procedure. Patient verbalized understanding of all of the above and is in agreement to proceed. Patient will seek medical attention for any acute changes. Will monitor. * Follow up:* As scheduled, sooner if needed. Functional Status Description No Information Available Mental Status Description No Information Available Referrals Description No Information Available
--- OUTSIDE RECORDS SUMMARY | 2020-05-31 07:58 | CCD ---
Author Author [facility] Organization [facility] Address Unknown Phone Unavailable Care Team Providers Care Basket Operator Name Role Phone Louise Guy Unavailable Unavailable Symenow, Louise DENNEY Unavailable Unavailable Symenow, Louise oMreno PA Unavailable Unavailable Symenow, Louise Moreno PA Unavailable Unavailable Symenow, Louise Moreno PA Unavailable Unavailable Symenow, Louise Moreno PA Unavailable Unavailable Symenow, Louise Moreno PA Unavailable Unavailable Symenow, Louise Moreno PA Unavailable Unavailable Symenoliz, Louise Moreno PA Unavailable Unavailable Symenoliz, Louise Moreno PA Unavailable Unavailable SymenowLouise PA Unavailable Unavailable Symenoliz, Louise Moreno PA Unavailable Unavailable Symenow, Louise Moreno PA Unavailable Unavailable Symenoliz, Louise Moreno PA Unavailable Unavailable Symenow, Louise Moreno PA Unavailable Unavailable Symenow, Louise Moreno PA Unavailable Unavailable Symenoliz, Louise Moreno PA Unavailable Unavailable Alfredoenow, Louise Moreno PA Unavailable Unavailable Symenoliz, Louise Moreno PA Unavailable Unavailable Symenoliz, Louise Moreno PA Unavailable Unavailable Symenow, Louise Moreno PA Unavailable Unavailable Symenow, Louise Moreno PA Unavailable Unavailable Symenow, Louise Tiffanie PA Unavailable Unavailable Symenow, Louise Tiffanie PA Unavailable Unavailable Symenow, Louise Tiffanie PA Unavailable Unavailable Symenow, Louise Tiffanie PA Unavailable Unavailable Symenow, Louise Tiffanie PA Unavailable Unavailable Symenow, Louise Tiffanie PA Unavailable Unavailable Symenow, Louise Tiffanie PA Unavailable Unavailable Symenow, Louise Tiffanie PA Unavailable Unavailable Symenow, Louise Tiffanie PA Unavailable Unavailable Symenow, Louise Tiffanie PA Unavailable Unavailable Symenow, Louise Tiffanie PA Unavailable Unavailable Symenow, Louise Tiffanie PA Unavailable Unavailable Symenow, Louise Tiffanie PA Unavailable Unavailable Symenow, Louise Tiffanie PA Unavailable Unavailable Fish, B Mckay MARRUFO Unavailable Unavailable Fish, B Mckay MARRUFO Unavailable Unavailable Fish, B Mckay MARRUFO Unavailable Unavailable Fish, B Mckay MARRUFO Unavailable Unavailable Fish, B Mckay MARRUFO Unavailable Unavailable Fish, B Mckay MARRUFO Unavailable Unavailable Fish, B Mckay MARRUFO Unavailable Unavailable Fish, B Mckay MARRUFO Unavailable Unavailable Fish, B Mckay MARRUFO Unavailable Unavailable Fish, B Mckay MARRUFO Unavailable Unavailable Fish, B Mckay MARRUFO Unavailable Unavailable Fish, B Mckay MARRUFO Unavailable Unavailable Fish, B Mckay MARRUFO Unavailable Unavailable Fish, B Mckay MARRUFO Unavailable Unavailable Fish, B Mckay MARRUFO Unavailable Unavailable Fish, B Mckay MARRUFO Unavailable Unavailable Fish, B Mckay MARRUFO Unavailable Unavailable Fish, B Mckay MARRUFO Unavailable Unavailable Fish, B Mckay MARRUFO Unavailable Unavailable Fish, B Mckay MARRUFO Unavailable Unavailable Fish, B Mckay MARRUFO Unavailable Unavailable Fish, B Mckay MARRUFO Unavailable Unavailable Fish, B Mckay MARRUFO Unavailable Unavailable Fish, B Mckay MARRUFO Unavailable Unavailable Fish, B Mckay MARRUFO Unavailable Unavailable Fish, B Mckay MARRUFO Unavailable Unavailable Fish, B Mckay MARRUFO Unavailable Unavailable Fish, B Mckay MARRUFO Unavailable Unavailable Fish, B Mckay MARRUFO Unavailable Unavailable Fish, B Mckay MARRUFO Unavailable Unavailable Fish, B Mckay MARRUFO Unavailable Unavailable Fish, B Mckay MARRUFO Unavailable Unavailable Fish, B Mckay MARRUFO Unavailable Unavailable Fish, B Mckay MARRUFO Unavailable Unavailable Fish, B Mckay MARRUFO Unavailable Unavailable Fish, B Mckay MARRUFO Unavailable Unavailable Fish, B Mckay MARRUFO Unavailable Unavailable Fish, B Mckay MARRUFO Unavailable Unavailable Fish, B Mckay MARRUFO Unavailable Unavailable Fish, B Mckay MARRUFO Unavailable Unavailable Fish, B Mckay MD Unavailable Unavailable Fish, B Mckay MD Unavailable Unavailable Fish, B Mckay MD Unavailable Unavailable Fish, B Mckay MD Unavailable Unavailable Fish, B Mckay MD Unavailable Unavailable Fish, B Mckay MD Unavailable Unavailable Fish, B Mckay MD Unavailable Unavailable Fish, B Mckay MD Unavailable Unavailable Fish, B Mckay MD Unavailable Unavailable Fish, B Mckay MD Unavailable Unavailable Fish, B Mckay MD Unavailable Unavailable Fish, B Mckay MD Unavailable Unavailable Fish, B Mckay MD Unavailable Unavailable Re-disclosure Warning The records that you are about to access may contain information from federally-assisted alcohol or drug abuse programs. If such information is present, then the following federally mandated warning applies: This information has been disclosed to you from records protected by federal confidentiality rules (42 CFR part 2). The federal rules prohibit you from making any further disclosure of this information unless further disclosure is expressly permitted by the written consent of the person to whom it pertains or as otherwise permitted by 42 CFR part 2. A general authorization for the release of medical or other information is NOT sufficient for this purpose. The Federal rules restrict any use of the information to criminally investigate or prosecute any alcohol or drug abuse patient.The records that you are about to access may contain highly sensitive health information, the redisclosure of which is protected by Article 27-F of the [facility] Public Health law. If you continue you may have access to information: Regarding HIV / AIDS; Provided by facilities licensed or operated by the [facility] Office of Mental Health; or Provided by the [facility] Office for People With Developmental Disabilities. If such information is present, then the following [facility] mandated warning applies: This information has been disclosed to you from confidential records which are protected by state law. State law prohibits you from making any further disclosure of this information without the specific written consent of the person to whom it pertains, or as otherwise permitted by law. Any unauthorized further disclosure in violation of state law may result in a fine or alf sentence or both. A general authorization for the release of medical or other information is NOT sufficient authorization for further disc losure. Allergies and Adverse Reactions Type Description Substance Reaction Status Data Source(s ) beta blockers beta blockers beta blockers Rash Active eCW1 ([facility]) beta blockers beta blockers beta blockers Rash Active eCW1 ([facility]) beta blockers beta blockers beta blockers Rash Active eCW1 ([facility]) beta blockers beta blockers beta blockers Rash Active eCW1 ([facility]) Family History Family Member Name Family Member Gender Family Member Status Date o f Status Description Data Source(s) Unknown Unknown Problem MEDENT ([facility]) Unknown Unknown Problem [facility] ([facility]) Unknown Male Problem [facility] ([facility] Unknown Female Problem [facility] ([facility]) Unknown Female Problem MED[facility] ([facility] Unknown Female Problem MED[facility] ([facility]) Unknown Unknown Problem [facility] ([facility] Unknown Unknown Problem [facility] ([facility]) Unknown Unknown Problem [facility] ([facility]) Unknown Unknown Problem [facility] ([facility]) mother Encounters Encounter Providers Location Date Indications Data Source(s ) Outpatient Attender: Tiffanie DENNEY Main Office 04/30/2020 07:15:00 AM EST MEDENT ([facility]) Outpatient [address] [facility] [address] 03/26/2020 12:00:00 AM EST eCW1 ([facility]) [facility] [address] [facility] [address] 03/14/2020 12:00:00 AM EST eCW1 ([facility]) Outpatient Attender: Tiffanie DENNEY Main Office 10/26/2019 11:30:00 AM EDT MEDENT ([facility]) Outpatient Attender: Mckay Monroy MD Physical Therapy 10/25/2019 1 1:15:00 AM EDT MEDENT ([facility]) Outpatient 08/24/2019 06:19:00 AM EDT [facility] [address] [facility] [address] 08/11/2019 12:00:00 AM EDT eCW1 ([facility]) Outpatient 06/06/2019 11:53:00 AM EST [facility] [address] [place] [address] 06/01/2019 12:00:00 AM EST eCW1 ([facility]) [facility] [address] [place] [address] 05/25/2019 12:00:00 AM EST eCW1 ([facility]) [facility] [address] [facility] [address] 05/01/2019 12:00:00 AM EST eCW1 ([facility]) Outpatient Attender: Tiffanie DENNEY Main Office 04/28/2019 07:15:00 AM EST MEDENT ([facility]) [facility] [address] [facility] [place] [address] 04/28/2019 12:00:00 AM EST eCW1 ([facility]) [facility] [address] [facility] [address] 04/07/2019 12:00:00 AM EST eCW1 ([facility]) Medications Medication Brand Name Start Date Product Form Dose Route Admi nistrative Instructions Pharmacy Instructions Status Indications Reaction Description Data Source(s) 50 mg 05/20/2020 12:00:00 AM EST tablet 180 TAKE ONE TABLET BY MOUTH TWICE A DAY TAKE ONE TABLET BY MOUTH TWICE A DAY SOLD: 05/20/2020 [facility] 20 mg 05/15/2020 12:00:00 AM EST tablet 90 TAKE ONE TABLET BY MOUTH EVERY DAY TAKE ONE TABLET BY MOUTH EVERY DAY SOLD: 05/15/2020 [facility] 24 HR Diltiazem Hydrochloride 120 MG Extended Release Oral Capsule DILTIAZEM HCL 04/22/2020 12:00:00 AM EST capsule,extended release 24hr 90 TAKE ONE CAPSULE BY MOUTH EVERY DAY TAKE ONE CAPSULE BY MOUTH EVERY DAY SOLD: 04/23/2020 [facility] 250 mcg (0.25 mg) 04/16/2020 12:00:00 AM EST tablet 30 TAKE ONE TABLET BY MOUTH EVERY DAY TAKE ONE TABLET BY MOUTH EVERY DAY SOLD: 04/21/2020 [facility] Digoxin 0.25 MG Oral Tablet 250 mcg (0.25 mg) DIGOXIN 04/16/2020 12:00:00 AM EST tablet 30 TAKE ONE TABLET BY MOUTH DONNA RY DAY TAKE ONE TABLET BY MOUTH EVERY DAY SOLD: 05/20/2020 [facility] 20 mg 02/06/2020 12:00:00 AM EST tablet 90 TAKE ONE TABLET BY MOUTH EVERY DAY TAKE ONE TABLET BY MOUTH EVERY DAY SOLD: 02/07/2020 [facility] 24 HR Diltiazem Hydrochloride 120 MG Extended Release Oral Capsule DILTIAZEM HCL 01/03/2020 12:00:00 AM EDT capsule,extended release 24hr 90 TAKE ONE CAPSULE BY MOUTH EVERY DAY TAKE ONE CAPSULE BY MOUTH EVERY DAY SOLD: 01/03/2020 [facility] Ibuprofen 200 MG Oral Capsule Ibuprofen 10/25/2019 12:00:00 AM EDT active MED[facility] ([facility]) Lidocaine 5 % Lidocaine 5 % 08/11/2019 12:00:00 AM EDT active Lidocaine 5 % eCW1 ([facility]) Lidocaine 5 % Lidocaine 5 % 08/11/2019 12:00:00 AM EDT active 1 patch remove after 12 hours eCW1 ([facility]) Diclofenac Sodium 0.03 MG/MG Topical Gel Diclofenac So dium 3 % Diclofenac Sodium 3 % 04/28/2019 12:00:00 AM EST suspended 1 application eCW1 ([facility]) Hydrocortisone 10 MG/ML Topical Cream Hydrocortisone 1 % Hyd rocortisone 1 % 04/28/2019 12:00:00 AM EST 1.0 {application} leidy pended Hydrocortisone 1 % eCW1 ([facility]) Diclofenac Sodium 0.03 MG/MG Topical Gel Diclofenac So dium 3 % Diclofenac Sodium 3 % 04/28/2019 12:00:00 AM EST suspended 1 application eCW1 ([facility]) Hydrocortisone 10 MG/ML Topical Cream Hydrocortisone 1 % Hyd rocortisone 1 % 04/28/2019 12:00:00 AM EST active 1 application eCW1 ([facility]) Diclofenac Sodium 0.03 MG/MG Topical Gel Diclofenac So dium 3 % Diclofenac Sodium 3 % 04/28/2019 12:00:00 AM EST active 1 application eCW1 ([facility]) Hydrocortisone 10 MG/ML Topical Cream Hydrocortisone 1 % Hyd rocortisone 1 % 04/28/2019 12:00:00 AM EST active 1 application eCW1 ([facility]) Diclofenac Sodium 0.03 MG/MG Topical Gel Diclofenac So dium 3 % Diclofenac Sodium 3 % 04/28/2019 12:00:00 AM EST 1.0 {application} suspended Diclofenac Sodium 3 % eCW1 ([facility]) Hydrocortisone 10 MG/ML Topical Cream Hydrocortisone 1 % Hyd rocortisone 1 % 04/28/2019 12:00:00 AM EST active 1 application eCW1 ([facility]) Cholecalciferol 1000 UNT Oral Tablet Vitamin D 04/27/2019 12:00:00 A M EST ORAL active MED[facility] ([facility]) Amoxicillin 875 MG / Clavulanate 125 MG Oral Tablet Amoxicillin-Pot Clavulanate 875-125 MG Amoxicillin-Pot Clavulanate 875-125 MG 04/10/2019 12:00:00 AM ES T suspended 1 tablet eCW1 ([facility]) Amoxicillin 875 MG / Clavulanate 125 MG Oral Tablet Amoxicillin-Pot Clavulanate 875-125 MG Amoxicillin-Pot Clavulanate 875-125 MG 04/10/2019 12:00:00 AM ES T suspended 1 tablet eCW1 ([facility]) Amoxicillin 875 MG / Clavulanate 125 MG Oral Tablet Amoxicillin-Pot Clavulanate 875-125 MG Amoxicillin-Pot Clavulanate 875-125 MG 04/10/2019 12:00:00 AM ES T suspended 1 tablet eCW1 ([facility]) Amoxicillin 875 MG / Clavulanate 125 MG Oral Tablet Amoxicillin-Pot Clavulanate 875-125 MG Amoxicillin-Pot Clavulanate 875-125 MG 04/10/2019 12:00:00 AM ES T 1.0 {tablet} suspended Amoxicillin-Pot C lavulanate 875-125 MG eCW1 ([facility]) Amoxicillin 875 MG / Clavulanate 125 MG Oral Tablet Amoxicillin-Pot Clavulanate 875-125 MG Amoxicillin-Pot Clavulanate 875-125 MG 04/10/2019 12:00:00 AM ES T active 1 tablet eCW1 ([facility]) Insurance Providers Payer name Policy type / Coverage type Policy ID Covered democrat ID Covered democrat's relationship to dominique Policy Dominique Plan Information AETNA MEDICARE [id number] SP [id number] T7S AETNA MEDICARE [id number] SP [id number] TS AETNA MEDICARE [id number] SP [id number] T7S AETNA MEDICARE [id number] SP [id number] T7S AETNA MEDICARE [id number] SP [id number] [place]/307 [id number] SP [id number] EXCELLUS BCBS B [id number] S [id number] BCBS [place]PO 302/307 [id number] SP [id number] ANSI-Commercial [id number] ANSI-Commercial [id number] ANSI-Commercial [id number] BS Of [place] Commercial [id number] Self [id number] BCBS [place] PPO 302/307 [id number] SP [id number] ANSI-Commercial [id number] BCBS [place] PPO 302/307 [id number] SP [id number] BS Of [place] Commercial [id number] Self [id number] Blue Healthy Choices Medigap Part B [id number] Self [id number] Healthy Blue Medigap Part B [id number] Self [id number] BCBS Healthy Blue Medigap Part B [id number] Self [id number] BCBS Excell[employer] U/W Commercial [id number] Self [id number] BCBS [place] Preferred Medigap Part B [id number] Family Dependent [id number] Blue Healthy Choices Medigap Part B [id number] Self [id number] Healthy Blue Medigap Part B [id number] Self [id number] BCBS Healthy Blue Medigap Part B [id number] Self [id number] BCBS Excell[employer] U/W Commercial [id number] Self [id number] ANSI-Commercial [id number] BCBS [place] PPO 302/307 [id number] SP [id number] ANSI-Commercial [id number] ANSI-Commercial [id number] Blue Healthy Choices Medigap Part B [id number] Self [id number] Healthy Blue Medigap Part B [id number] Self [id number] BCBS Healthy Blue Medigap Part B [id number] Self [id number] BCBS Excell[employer] U/W Commercial [id number] Self [id number] Blue Healthy Choices Medigap Part B [id number] Self [id number] Healthy Blue Medigap Part B [id number] Self [id number] BCBS Healthy Blue Medigap Part B [id number] Self [id number] BCBS Excell[employer] U/W Commercial [id number] Self [id number] BCBS [place] PPO 302/307 [id number] SP [id number] BCBS [place] PPO 302/307 [id number] SP [id number] BC/BS Of [place] Commercial [id number] Self [id number] Blue Healthy Choices Medigap Part B [id number] Self [id number] Healthy Blue Medigap Part B [id number] Self [id number] BCBS Healthy Blue Medigap Part B [id number] Self [id number] BCBS Excell[employer] Ppo U/W Commercial [id number] Self [id number] Blue Healthy Choices Medigap Part B [id number] Self [id number] Healthy Blue Medigap Part B [id number] Self [id number] BCBS Healthy Blue Medigap Part B [id number] Self [id number] BCBS Excell[employer] Ppo U/W Commercial [id number] Self [id number] Blue Healthy Choices Medigap Part B [id number] Self [id number] Healthy Blue Medigap Part B [id number] Self [id number] BCBS Healthy Blue Medigap Part B [id number] Self [id number] BCBS Excellus Ppo U/W Commercial [id number] Self [id number] BCBS/Excellus Commercial [id number] Self [id number] Blue Healthy Choices Medigap Part B [id number] Self [id number] Healthy Blue Medigap Part B [id number] Self [id number] BCBS Healthy Blue Medigap Part B [id number] Self [id number] BCBS Excellus Ppo U/W Commercial [id number] Self [id number] BS [place] Commercial Self BS [place] Medigap Part B [id number] Self [id number] BCBS [place] PPO 302/307 [id number] SP [id number] BCBS [place] PPO 302/307 [id number] SP [id number] BCBS [place] PPO 302/307 [id number] SP [id number] EXCELLUS BCBS B [id number] S [id number] BCBS/Excellus Commercial Self BCBS Excellus Ppo U/W Commercial Self Blue Healthy Choices Medigap Part B Self BCBS [place] Preferred Medigap Part B Family Depen dent Healthy Blue Medigap Part B Self BCBS Healthy Blue Commercial Self BS [place] Commercial Self [id number] Problems, Conditions, and Diagnoses Code Display Name Description Problem Type Effective Dates Data Source(s) L40.9 [id number] Psoriasis of vulva Problem 06/01/2019 12:00: 00 AM EST eCW1 ([facility]) L40.9 [id number] Psoriasis of vulva Problem 06/01/2019 12:00: 00 AM EST eCW1 ([facility]) M19.041 [id number] Primary osteoarthritis, right hand Pro blem 04/28/2019 12:00:00 AM EST eCW1 ([facility]) M19.042 [id number] Primary osteoarthritis, left hand Prob regina 04/28/2019 12:00:00 AM EST eCW1 ([facility]) M19.041 [id number] Primary osteoarthritis, right hand Pro blem 04/28/2019 12:00:00 AM EST eCW1 ([facility]) M19.042 [id number] Primary osteoarthritis, left hand Prob regina 04/28/2019 12:00:00 AM EST eCW1 ([facility]) Surgeries/Procedures Procedure Description Date Indications Data Source(s) ECG ROUTINE ECG W/LEAST 12 LDS W/I&R 04/30/2020 12:00: 00 AM EST MEDENT ([facility]) ECG ROUTINE ECG W/LEAST 12 LDS W/I&R 10/26/2019 12:00: 00 AM EDT MEDENT ([facility]) MRI Lower Extremity Any Joint 09/05/2019 12:00:00 AM E DT MEDENT ([facility] ECG ROUTINE ECG W/LEAST 12 LDS W/I&R 04/28/2019 12:00: 00 AM EST MEDENT ([facility]) Results ID Date Data Source [id number] 05/26/2020 09:00:00 AM EST [facility] Name Value Range Interpretation Code Description Data Alaina rce(s) Supporting Document(s) SARS coronavirus 2 RNA Not Detected [facility] This lab was ordered by [facility] and reported by [facility]. ID Date Data Source [id number] 04/23/2020 08:55:00 AM EST MEDENT ([facility]) Name Value Range Interpretation Code Description Data Alaina rce(s) Supporting Document(s) White Blood Count 9.1 10 4.0-10.0 MEDENT ([facility]) Hematocrit 44.1 % 36.0-47.0 MEDENT ([facility]) Red Blood Count 4.79 10 4.00-5.40 [facility] Hemoglobin 14.2 g/dL 12.0-15.5 MEDENT ([facility]) Mean Corpuscular Volume 92.1 fl 80.0-96.0 M EDENT ([facility]) Mean Corpuscular HGB Conc 32.2 g/dL 32.0-36.5 MEDENT ([facility]) Mean Corpuscular Hemoglobin 29.6 pg 27.0-33.0 MEDENT ([facility]) Nucleated Red Blood Cell % 0.0 % 0-0 MED ENT ([facility]) Platelet Count, Automated 384 10 150-450 MEDENT ([facility]) Red Cell Distribution Width 13.8 % 11.5-14.5 MEDENT ([facility]) ID Date Data Source [id number] 04/23/2020 08:55:00 AM EST MEDENT ([facility]) Name Value Range Interpretation Code Description Data Alaina rce(s) Supporting Document(s) Thyrotropin [Units/volume] in Serum or Plasma 2.670 uIU/ML 0.358-3.74 0 MEDENT ([facility]) Magnesium [Mass/volume] in Serum or Plasma 2.2 mg/dL 1.8-2.4 MEDENT ([facility]) ID Date Data Source [id number] 04/23/2020 08:55:00 AM EST MEDENT ([facility]) Name Value Range Interpretation Code Description Data Alaina rce(s) Supporting Document(s) Cholesterol Level 209 mg/dL MED[facility] ([facility]) Triglycerides Level 262 mg/dL MEDENT ([facility]) HDL Cholesterol 47 mg/dL MED[facility] ([facility]) LDL Cholesterol 110 mg/dL MEDENT ([facility]) Non-HDL-C 162 mg/dL MEDENT ([facility]) Cholesterol Risk Ratio 4.446 MEDENT ([facility]) ID Date Data Source [id number] 04/23/2020 08:55:00 AM EST MEDENT ([facility]) Name Value Range Interpretation Code Description Data Alaina rce(s) Supporting Document(s) Glucose, Fasting 94 mg/dL 70-100 MEDENT ([facility]) Blood Urea Nitrogen 15 mg/dL 7-18 MEDENT ([facility]) Creatinine For GFR 0.89 mg/dL 0.55-1.30 MEDENT ([facility]) Glomerular Filtration Rate Laboratory test result MEDENT ([facility]) <content>Units are mL/min/1.73 m2</content>
<content></content>
<content>Chronic Kidney Disease Staging per NKF:</content>
<content></content>
<content>Stage I & II GFR >=60 Normal to Mildly Decreased</content>
<content>Stage III GFR 30- 59 Moderately Decreased</content>
<content>Stage IV GFR 15-29 Severely Decreased</content>
<content>Stage V GFR <15 Very Little GFR Left</content>
<content>ESRD GFR <15 on COMMISSARY PRODUCTION SUPERVISOR</content>
<content></content> Chloride Level 104 meq/L 98-107 MEDENT ([facility]) Sodium Level 139 meq/L 136-145 MEDENT ([facility]) Potassium Serum 4.8 meq/L 3.5-5.1 MEDENT ([facility]) Carbon Dioxide Level 32 meq/L 21-32 MEDENT ([facility]) Anion Gap 3 meq/L 8-16 [facility] Calcium Level 9.4 mg/dL 8.8-10.2 MEDENT ([facility] [facility]) Alkaline Phosphatase 91 U/L 45-117 [facility] ([facility]) Ast/Sgot 12 U/L 7-37 [facility] ([facility] Alt/SGPT 29 U/L 12-78 [facility] ([facility] Total Protein 7.4 GM/DL 6.4-8.2 [facility] ([facility]) Bilirubin,Total 0.6 mg/dL 0.2-1.0 [facility] ([facility]) Albumin 3.8 GM/DL 3.2-5.2 [facility] ([facility] Albumin/Globulin Ratio 1.1 1.2-2.2 [facility] ([facility]) ID Date Data Source [id number] 04/07/2019 08:30:00 AM EST [facility] ([facility]) Name Value Range Interpretation Code Description Data Alaina rce(s) Supporting Document(s) White Blood Count 9.1 4.0-10.0 [facility] ([facility]) Red Blood Count 4.73 4.00-5.40 [facility] ([facility]) Platelets 378 150-450 [facility] ([facility] Hemoglobin 14.3 [facility] ([facility]) Hematocrit 43.6 [facility] ([facility]) Procedure Social History Code Duration Value Status Description Data Source(s ) Smoking 04/30/2020 12:00:00 AM EST Patient is a former smoker completed Patient is a former smoker [facility] ([facility]) Smoking 03/26/2020 12:00:00 AM EST Former Smoker completed Former Smoker eCW1 ([facility], [facility]) Vital Signs ID Date Data Source UNK Name Value Range Interpretation Code Description Data Source(s) Diastolic blood pressure 74 mm[Hg] 74 mm[Hg] [facility] ([facility]) sitting Systolic blood pressure 122 mm[Hg] 122 mm[Hg] M EDENT ([facility]) sitting Diastolic blood pressure 70 mm[Hg] 70 mm[Hg] [facility] ([facility]) sitting, large cuff Systolic blood pressure 122 mm[Hg] 122 mm[Hg] M EDENT ([facility]) sitting, large cuff Respiratory rate 16 /min 16 /min [facility] ( [facility]) Heart rate 56 /min 56 /min [facility] ([facility]) Regular Body mass index (BMI) [Ratio] 31.9 kg/m2 31.9 k g/m2 [facility] ([facility]) Body height 70 [in_i] 70 [in_i] [facility] ([facility]) 5'10" Body weight 222.00 [lb_av] 222.00 [lb_av] MEDEN T ([facility]) Body surface area Derived from formula 2.17 m2 2.17 m2 [facility] ([facility]) Body weight 99.792 kg 99.792 kg [facility] ([facility]) [place] body weight 150 [lb_av] 150 [lb_av] MEDEN T ([facility]) Body mass index (BMI) [Ratio] 31.6 kg/m2 31.6 k g/m2 [facility] ([facility]) Body weight 220.00 [lb_av] 220.00 [lb_av] MEDEN T ([facility]) Body height 70 [in_i] 70 [in_i] [facility] ([facility]) 5'10" Diastolic blood pressure 64 mm[Hg] 64 mm[Hg] [facility] ([facility]) Systolic blood pressure 112 mm[Hg] 112 mm[Hg] M EDENT ([facility]) Diastolic blood pressure 72 mm[Hg] 72 mm[Hg] eCW1 ([facility], [facility]) Systolic blood pressure 124 mm[Hg] 124 mm[Hg] e CW1 ([facility], [facility]) Body temperature 97 [degF] 97 [degF] eCW1 ([facility] / [facility]) Respiratory rate 20 /min 20 /min eCW1 ([facility] / [facility]) Heart rate 70 /min 70 /min eCW1 ([facility]) Body mass index (BMI) [Ratio] 31.71 kg/m2 31.71 kg/m2 eCW1 ([facility], [facility]) Body height 70 [in_i] 70 [in_i] eCW1 ([facility]) Body weight 221 [lb_av] 221 [lb_av] eCW1 ([facility]) Diastolic blood pressure 68 mm[Hg] 68 mm[Hg] [facility] ([facility]) sitting Systolic blood pressure 116 mm[Hg] 116 mm[Hg] M EDENT ([facility]) sitting Diastolic blood pressure 68 mm[Hg] 68 mm[Hg] [facility] ([facility]) sitting, large cuff Systolic blood pressure 118 mm[Hg] 118 mm[Hg] M EDENT ([facility]) sitting, large cuff Respiratory rate 16 /min 16 /min [facility] ( [facility]) Heart rate 52 /min 52 /min [facility] ([facility]) Regular Body mass index (BMI) [Ratio] 32.0 kg/m2 32.0 k g/m2 [facility] ([facility]) Body height 70 [in_i] 70 [in_i] [facility] ([facility]) 5'10" Body weight 223.00 [lb_av] 223.00 [lb_av] MEDEN T ([facility]) Body mass index (BMI) [Ratio] 33.8 kg/m2 33.8 k g/m2 [facility] ([facility]) Body weight 222.00 [lb_av] 222.00 [lb_av] MEDEN T ([facility]) Body height 68 [in_i] 68 [in_i] [facility] ([facility]) 5'8" Body temperature 98.1 [degF] 98.1 [degF] [facility] ([facility]) Diastolic blood pressure 78 mm[Hg] 78 mm[Hg] eCW1 ([facility], [facility]) Systolic blood pressure 124 mm[Hg] 124 mm[Hg] e CW1 ([facility], [facility]) Body temperature 96.8 [degF] 96.8 [degF] eCW1 ( [facility], [facility]) Respiratory rate 18 /min 18 /min eCW1 ([facility] / [facility]) Heart rate 81 /min 81 /min eCW1 ([facility]) Body mass index (BMI) [Ratio] 32.40 kg/m2 32.40 kg/m2 eCW1 ([facility], [facility]) Body height 70 [in_us] 70 [in_us] eCW1 ([facility]) Body weight Measured 225.8 [lb_av] 225.8 [lb_av ] eCW1 ([facility], [facility]) Diastolic blood pressure 70 mm[Hg] 70 mm[Hg] eCW1 ([facility], [facility]) Systolic blood pressure 122 mm[Hg] 122 mm[Hg] e CW1 ([facility], [facility]) Body mass index (BMI) [Ratio] 31.99 kg/m2 31.99 kg/m2 eCW1 ([facility], [facility]) Body height 70 [in_us] 70 [in_us] eCW1 ([facility]) Body weight Measured 223 [lb_av] 223 [lb_av] eC W1 ([facility], [facility]) Diastolic blood pressure 76 mm[Hg] 76 mm[Hg] eCW1 ([facility], [facility]) Systolic blood pressure 118 mm[Hg] 118 mm[Hg] e CW1 ([facility], [facility]) Body temperature 97.6 [degF] 97.6 [degF] eCW1 ( [facility], [facility]) Respiratory rate 18 /min 18 /min eCW1 ([facility]) Heart rate 74 /min 74 /min eCW1 ([facility]) Body mass index (BMI) [Ratio] 31.79 kg/m2 31.79 kg/m2 eCW1 ([facility], [facility]) Body height 70 [in_us] 70 [in_us] eCW1 ([facility]) Body weight Measured 221.6 [lb_av] 221.6 [lb_av ] eCW1 ([facility], [facility]) Diastolic blood pressure 64 mm[Hg] 64 mm[Hg] [facility] ([facility]) Sitting Systolic blood pressure 128 mm[Hg] 128 mm[Hg] M EDENT ([facility]) Sitting Diastolic blood pressure 64 mm[Hg] 64 mm[Hg] [facility] ([facility]) Sitting, large cuff Systolic blood pressure 134 mm[Hg] 134 mm[Hg] M EDENT ([facility]) Sitting, large cuff Respiratory rate 16 /min 16 /min [facility] ( [facility]) Heart rate 54 /min 54 /min [facility] ([facility]) Regular Body mass index (BMI) [Ratio] 31.3 kg/m2 31.3 k g/m2 [facility] ([facility]) Body height 70 [in_i] 70 [in_i] [facility] ([facility]) 5'10" Body weight 218.00 [lb_av] 218.00 [lb_av] MEDEN T ([facility]) Diastolic blood pressure 80 mm[Hg] 80 mm[Hg] eCW1 ([facility], [facility]) Systolic blood pressure 124 mm[Hg] 124 mm[Hg] e CW1 ([facility], [facility]) Body temperature 97.2 [degF] 97.2 [degF] eCW1 ( [facility], [facility]) Respiratory rate 18 /min 18 /min eCW1 ([facility] / [facility]) Heart rate 67 /min 67 /min eCW1 ([facility]) Body mass index (BMI) [Ratio] 31.76 kg/m2 31.76 kg/m2 eCW1 ([facility], [facility]) Body height 70 [in_us] 70 [in_us] eCW1 ([facility]) Body weight Measured 221.4 [lb_av] 221.4 [lb_av ] eCW1 ([facility], [facility]) Patient Treatment Plan of Care Planned Activity Planned Date Details Description Data Source (s) Lidocaine 5 % 08/11/2019 12:00:00 AM EDT eCW1 ([facility], [facility]) Diclofenac Sodium 0.03 MG/MG Topical Gel 04/28/2019 12:00:00 AM EST eCW1 ([facility], [facility]) Hydrocortisone 10 MG/ML Topical Cream 04/28/2019 12:00:00 AM EST eCW1 ([facility], [facility]) Amoxicillin 875 MG / Clavulanate 125 MG Oral Tablet 04/10/19 12:00:00 AM EST eCW1 ([facility])
[2020-05-31] MEDS ORDERED: LIDOCAINE 2% 100MG/5ML SDV (FOR ANES.) As Ordered ONE ×2 (08:40→10:02)
[2020-05-31] MEDS ORDERED: propofoL 200 MG/20 ML VIAL As Ordered ONE ×2 (08:40→10:02)
--- NOTE | 2020-05-31 10:08 | ROOR ---
Patient Name: Elo Felipe Procedure Date: 05/31/2020 9:38 AM Date of : 1955 Age: 65 Room: [facility] Gender: Female Note Status: Finalized Procedure: Colonoscopy Indications: High risk colon cancer surveillance: Personal history of colonic polyps Providers: Kobe DUONG MD Referring MD: Shaun Cornell MD Requesting Provider: Medicines: Monitored Anesthesia Care Complications: No immediate complications. Procedure: Pre-Anesthesia Assessment: - The heart rate, respiratory rate, oxygen saturations, blood pressure, adequacy of pulmonary ventilation, and response to care were monitored throughout the procedure. The Colonoscope was introduced through the anus and advanced to the cecum, identified by appendiceal orifice and ileocecal valve. The colonoscopy was performed without difficulty. The patient tolerated the procedure well. The quality of the bowel preparation was good. Findings: The perianal and digital rectal examinations were normal. Three sessile polyps were found in the rectum and sigmoid colon. The polyps were diminutive in size. These polyps were removed with a cold snare. Resection and retrieval were complete. Multiple medium-mouthed diverticula were found in the sigmoid colon. Internal hemorrhoids were found during retroflexion. The hemorrhoids were moderate. The exam was otherwise without abnormality on direct and retroflexion views. Impression: - Three diminutive polyps in the rectum and in the sigmoid colon, removed with a cold snare. Resected and retrieved. - Diverticulosis in the sigmoid colon. - Internal hemorrhoids. - The examination was otherwise normal on direct and retroflexion views. Recommendation: - Repeat colonoscopy in 5 years for surveillance. - Resume Xarelto (rivaroxaban) at prior dose tomorrow. Procedure Code(s): --- Professional --- 75579, Colonoscopy, flexible; with removal of tumor(s), polyp(s), or other lesion(s) by snare technique Diagnosis Code(s): --- Professional --- Z86.010, Personal history of colonic polyps K62.1, Rectal polyp K63.5, Polyp of colon K64.8, Other hemorrhoids K57.30, Diverticulosis of large intestine without perforation or abscess without bleeding CPT copyright 2019 [employer]. All rights reserved. The codes documented in this report are preliminary and upon chief information officer review may be revised to meet current compliance requirements. Kobe Duong MD Kobe DUONG MD 05/31/2020 10:08:52 AM Electronically signed by Kobe DUONG MD Number of Addenda: 0 Note Initiated On: 05/31/2020 9:38 AM Estimated Blood Loss: Estimated blood loss: none.
[2020-05-31 10:35] VITALS: BP 160/76
== END 2020-05-31 10:39 | disposition home or self-care (01) ==
LOC: M OPP 07:52
PROVIDERS: ATTEND Internal Medicine Gastroenterology
DX: Z12.11 Encounter for screening for malignant neoplasm of colon (principal); Z86.010 Personal history of colon polyps; K63.5 Polyp of colon; K62.1 Rectal polyp; K57.30 Diverticulosis of large intestine without perforation or abscess without bleeding; K64.8 Other hemorrhoids; I48.91 Unspecified atrial fibrillation; E78.5 Hyperlipidemia, unspecified; M19.90 Unspecified osteoarthritis, unspecified site; L40.9 Psoriasis, unspecified; G47.30 Sleep apnea, unspecified; Z88.8 Allergy status to other drugs, medicaments and biological substances; Z79.01 Long term (current) use of anticoagulants; Z79.899 Other long term (current) drug therapy; Z80.52 Family history of malignant neoplasm of bladder

== ENCOUNTER → 2020-06-03 | Outpatient (CLI) | payer MEDICARE ==
[~2020-06-03] MED LIST changes: -NS 1,000 ML IV ONE
--- NOTE | 2020-06-03 09:50 | REPMRS ---
Patient History The patient states she has not had a clinical breast exam in over a year. No known family history of cancer. No Hormone Replacement Therapy 3D TOMOSYNTHESIS WAS PERFORMED. [facility] for [facility]%. Volpara breast density b. Digital Woman Screen Mammo: June 03, 2020 - Exam #: [id number] Bilateral CC and MLO view(s) were taken. Technologist: Donna Wilkins, Technologist Prior study comparison: June 01, 2019, bilateral digital woman screen mammo performed at [facility]. May 24, 2018, bilateral digital woman screen mammo performed at [facility]. FINDINGS: There are scattered fibroglandular densities. There has been no change in the appearance of the mammogram from the prior studies. There is a mild amount of residual fibroglandular tissue which is fairly symmetric. There is no interval development of dominant mass, architectural distortion, or clustered microcalcification suggestive of malignancy. Assessment: BI-RADS/ACR category 1 mammogram. Negative Mammogram. Recommendation Routine screening mammogram in 1 year (for women over age 40). This mammogram was interpreted with the aid of an FDA-approved computer-aided dectection system. Electronically Signed By: Kenneth Gong MD 06/03/20 [id number]
== END ==
LOC: M WHC 08:46
PROVIDERS: ATTEND Physician Assistant
DX: Z12.31 Encounter for screening mammogram for malignant neoplasm of breast (principal)

== ENCOUNTER → 2020-10-25 | Outpatient (CLI) | payer MEDICARE ==
[2020-10-25 13:39] LABS: HEMATOCRIT 41.6 % (36.0-47.0); HEMOGLOBIN 13.9 g/dl (12.0-15.5); MEAN CORPUSCULAR HEMOGLOBIN 30.3 pg (27.0-33.0); MEAN CORPUSCULAR HGB CONC 33.4 g/dl (32.0-36.5); MEAN CORPUSCULAR VOLUME 90.8 fl (80.0-96.0); PLATELET COUNT, AUTOMATED 362 10^3/uL (150-450); RED BLOOD COUNT 4.58 10^6/uL (4.00-5.40); WHITE BLOOD COUNT 9.8 10^3/uL (4.0-10.0)
[2020-10-25 14:04] LABS: BLOOD UREA NITROGEN 13 MG/DL (7-18); CARBON DIOXIDE LEVEL 32 MEQ/L (21-32); CHLORIDE LEVEL 105 MEQ/L (98-107); CREATININE FOR GFR 0.87 MG/DL (0.55-1.30); GLOMERULAR FILTRATION RATE > 60.0 (>45); GLUCOSE, FASTING 82 MG/DL (70-100); MAGNESIUM LEVEL 2.2 MG/DL (1.8-2.4); POTASSIUM SERUM 4.7 MEQ/L (3.5-5.1); SODIUM LEVEL 142 MEQ/L (136-145)
== END ==
LOC: M LAB 12:32
PROVIDERS: ATTEND Physician Assistant
DX: I48.0 Paroxysmal atrial fibrillation (principal)

== ENCOUNTER → 2021-03-21 | Outpatient (CLI) | payer MEDICARE ==
[2021-03-21 17:22] LABS: HEMATOCRIT 42.7 % (36.0-47.0); MEAN CORPUSCULAR HEMOGLOBIN 30.2 pg (27.0-33.0); MEAN CORPUSCULAR HGB CONC 32.8 g/dl (32.0-36.5); MEAN CORPUSCULAR VOLUME 92.2 fl (80.0-96.0); PLATELET COUNT, AUTOMATED 384 10^3/uL (150-450); RED BLOOD COUNT 4.63 10^6/uL (4.00-5.40); WHITE BLOOD COUNT 8.9 10^3/uL (4.0-10.0)
[2021-03-21 17:36] LABS: ALBUMIN 3.7 GM/DL (3.2-5.2); ALT/SGPT 30 U/L (12-78); BILIRUBIN,TOTAL 0.4 MG/DL (0.2-1.0); BLOOD UREA NITROGEN 16 MG/DL (7-18); CALCIUM LEVEL 9.6 MG/DL (8.8-10.2); CARBON DIOXIDE LEVEL 32 MEQ/L (21-32); CHLORIDE LEVEL 106 MEQ/L (98-107); CHOLESTEROL LEVEL 203 MG/DL (<200); CHOLESTEROL RISK RATIO 4.511 (<5); CREATININE FOR GFR 0.83 MG/DL (0.55-1.30); GLOMERULAR FILTRATION RATE > 60.0 (>45); GLUCOSE, FASTING 118 MG/DL (70-100); HDL CHOLESTEROL 45 MG/DL (>40); LDL CHOLESTEROL 105 MG/DL (<100); NON-HDL-C 158 MG/DL; POTASSIUM SERUM 4.6 MEQ/L (3.5-5.1); SODIUM LEVEL 143 MEQ/L (136-145); TOTAL PROTEIN 7.2 GM/DL (6.4-8.2); TRIGLYCERIDES LEVEL 264 MG/DL (<150)
[2021-03-21 17:44] LABS: TOTAL 25(OH) VITAMIN D 23.7 NG/ML (30.0-100.0)
== END ==
LOC: M PLALAB 14:25
PROVIDERS: ATTEND Physician Assistant
DX: E78.5 Hyperlipidemia, unspecified (principal); E55.9 Vitamin D deficiency, unspecified; G47.33 Obstructive sleep apnea (adult) (pediatric)

== ENCOUNTER → 2021-11-07 | Outpatient (CLI) | payer MEDICARE ==
[~2021-11-07] MED LIST changes: -D31000TA2 PO; +VITA100093 PO
== END ==
LOC: M WHC 10:26
PROVIDERS: ATTEND Obstetrics & Gynecology
DX: Z12.31 Encounter for screening mammogram for malignant neoplasm of breast (principal)

== ENCOUNTER → 2022-01-21 | Outpatient (CLI) | payer MEDICARE, SELFPAY ==
[2022-01-21 14:56] LABS: HEMATOCRIT 44.4 % (36.0-47.0); HEMOGLOBIN 14.1 g/dl (12.0-15.5); MEAN CORPUSCULAR HEMOGLOBIN 29.7 pg (27.0-33.0); MEAN CORPUSCULAR HGB CONC 31.8 g/dl (32.0-36.5); MEAN CORPUSCULAR VOLUME 93.7 fl (80.0-96.0); PLATELET COUNT, AUTOMATED 412 10^3/uL (150-450); RED BLOOD COUNT 4.74 10^6/uL (4.00-5.40); WHITE BLOOD COUNT 10.9 10^3/uL (4.0-10.0)
[2022-01-21 16:21] LABS: ALBUMIN 3.7 GM/DL (3.2-5.2); ALT/SGPT 31 U/L (12-78); BILIRUBIN,TOTAL 0.5 MG/DL (0.2-1.0); BLOOD UREA NITROGEN 9 MG/DL (7-18); CARBON DIOXIDE LEVEL 31 MEQ/L (21-32); CHLORIDE LEVEL 102 MEQ/L (98-107); CHOLESTEROL LEVEL 183 MG/DL (<200); CHOLESTEROL RISK RATIO 4.255 (<5); CREATININE FOR GFR 0.81 MG/DL (0.55-1.30); GLOMERULAR FILTRATION RATE > 60.0 (>45); GLUCOSE, FASTING 95 MG/DL (70-100); HDL CHOLESTEROL 43 MG/DL (>40); LDL CHOLESTEROL 107 MG/DL (<100); NON-HDL-C 140 MG/DL; POTASSIUM SERUM 4.5 MEQ/L (3.5-5.1); SODIUM LEVEL 138 MEQ/L (136-145); TOTAL PROTEIN 7.3 GM/DL (6.4-8.2); TRIGLYCERIDES LEVEL 164 MG/DL (<150)
[2022-01-21 16:42] LABS: TOTAL 25(OH) VITAMIN D 30.7 NG/ML (30.0-100.0)
== END ==
LOC: M PLALAB 09:14
PROVIDERS: ATTEND Nurse Practitioner Family
DX: E78.5 Hyperlipidemia, unspecified (principal); E55.9 Vitamin D deficiency, unspecified; G47.33 Obstructive sleep apnea (adult) (pediatric); Z79.899 Other long term (current) drug therapy

== ENCOUNTER → 2022-04-02 | Outpatient (REF) | payer MEDICARE | LOC: M SFHCWAGY 13:32 | PROVIDERS: ATTEND Nurse Practitioner Family | DX: Z12.4 Encounter for screening for malignant neoplasm of cervix (principal) | CPT/HCPCS: 87624; G0123 ==

== ENCOUNTER → 2022-05-02 | Outpatient (CLI) | payer MEDICARE ==
[2022-05-02 09:38] LABS: BASO # 0.1 10^3/uL (0.0-0.2); BASO % 0.7 % (0.0-1.0); EOS # 0.4 10^3/uL (0.0-0.5); EOS % 4.1 % (0.0-3.0); HEMATOCRIT 43.7 % (36.0-47.0); HEMOGLOBIN 14.3 g/dl (12.0-15.5); LYMPH % 32.8 % (24.0-44.0); MEAN CORPUSCULAR HEMOGLOBIN 29.9 pg (27.0-33.0); MEAN CORPUSCULAR HGB CONC 32.7 g/dl (32.0-36.5); MEAN CORPUSCULAR VOLUME 91.2 fl (80.0-96.0); MONO # 0.7 10^3/uL (0.0-0.8); MONO % 8.2 % (2.0-8.0); NEUTROPHILS # 4.9 10^3/uL (1.5-8.5); NEUTROPHILS % 53.8 % (36.0-66.0); PLATELET COUNT, AUTOMATED 372 10^3/uL (150-450); RED BLOOD COUNT 4.79 10^6/uL (4.00-5.40)
[2022-05-02 10:04] LABS: ALBUMIN 3.7 G/DL (3.2-5.2); ALKALINE PHOSPHATASE 99 U/L (46-116); ALT/SGPT 59 U/L (7.0-40); AST/SGOT 46 U/L (<34); BILIRUBIN,TOTAL 0.6 MG/DL (0.3-1.2); BLOOD UREA NITROGEN 15 MG/DL (9-23); CARBON DIOXIDE LEVEL 30 MMOL/L (20-31); CHLORIDE LEVEL 104 MMOL/L (98-107); CHOLESTEROL LEVEL 167 MG/DL (<200); CHOLESTEROL RISK RATIO 3.63 (<5); CREATININE FOR GFR 0.75 MG/DL (0.55-1.30); GLOMERULAR FILTRATION RATE > 60.0 (>45); GLUCOSE, FASTING 99 MG/DL (74-106); HDL CHOLESTEROL 45.9 MG/DL (>40); LDL CHOLESTEROL 81.7 MG/DL (<100); NON-HDL-C 121 MG/DL; POTASSIUM SERUM 4.4 MMOL/L (3.5-5.1); SODIUM LEVEL 140 MMOL/L (136-145); TRIGLYCERIDES LEVEL 197 MG/DL (<150)
[2022-05-02 10:06] LABS: TOTAL 25(OH) VITAMIN D 26.5 NG/ML (20.0-100.0)
== END ==
LOC: M LAB 09:03
PROVIDERS: ATTEND Nurse Practitioner Family
DX: I48.0 Paroxysmal atrial fibrillation (principal); E55.9 Vitamin D deficiency, unspecified; E78.5 Hyperlipidemia, unspecified; Z79.899 Other long term (current) drug therapy

== ENCOUNTER → 2022-08-04 | Outpatient (CLI) | payer MEDICARE ==
[2022-08-04 09:42] LABS: BASO # 0.1 10^3/uL (0.0-0.2); BASO % 0.7 % (0.0-1.0); EOS # 0.3 10^3/uL (0.0-0.5); EOS % 3.7 % (0.0-3.0); HEMATOCRIT 43.2 % (36.0-47.0); HEMOGLOBIN 14.1 g/dl (12.0-15.5); LYMPH # 3.3 10^3/uL (1.5-5.0); LYMPH % 35.7 % (24.0-44.0); MEAN CORPUSCULAR HEMOGLOBIN 29.8 pg (27.0-33.0); MEAN CORPUSCULAR HGB CONC 32.6 g/dl (32.0-36.5); MEAN CORPUSCULAR VOLUME 91.3 fl (80.0-96.0); MONO # 0.8 10^3/uL (0.0-0.8); MONO % 8.3 % (2.0-8.0); NEUTROPHILS # 4.7 10^3/uL (1.5-8.5); NEUTROPHILS % 51.3 % (36.0-66.0); PLATELET COUNT, AUTOMATED 364 10^3/uL (150-450); RED BLOOD COUNT 4.73 10^6/uL (4.00-5.40); WHITE BLOOD COUNT 9.1 10^3/uL (4.0-10.0)
[2022-08-04 10:01] LABS: LIPASE 42 U/L (12-53)
[2022-08-04 10:03] LABS: ALBUMIN 3.7 G/DL (3.2-5.2); ALKALINE PHOSPHATASE 88 U/L (46-116); ALT/SGPT 25 U/L (7.0-40); AST/SGOT 19 U/L (<34); BILIRUBIN,TOTAL 0.6 MG/DL (0.3-1.2); BLOOD UREA NITROGEN 12 MG/DL (9-23); CARBON DIOXIDE LEVEL 31 MMOL/L (20-31); CHLORIDE LEVEL 103 MMOL/L (98-107); CREATININE FOR GFR 0.82 MG/DL (0.55-1.30); GLOMERULAR FILTRATION RATE > 60.0 (>45); GLUCOSE, FASTING 90 MG/DL (74-106); POTASSIUM SERUM 4.6 MMOL/L (3.5-5.1); SODIUM LEVEL 141 MMOL/L (136-145); TOTAL PROTEIN 6.9 G/DL (5.7-8.2)
== END ==
LOC: M LAB 08:31
PROVIDERS: ATTEND Nurse Practitioner Family
DX: R10.11 Right upper quadrant pain (principal); I48.0 Paroxysmal atrial fibrillation

== ENCOUNTER → 2022-08-06 | Outpatient (CLI) | payer MEDICARE | LOC: M RAD 09:24 | PROVIDERS: ATTEND Nurse Practitioner Family | DX: R74.01 Elevation of levels of liver transaminase levels (principal) ==

== ENCOUNTER → 2023-02-07 | Outpatient (REF) | payer MEDICARE ==
[2023-02-07 18:11] LABS: APPEARANCE, URINE HAZY (CLEAR); BACTERIA, URINE AUTO 1+ (NEGATIVE); BILIRUBIN, URINE AUTO NEGATIVE (NEGATIVE); BLOOD, URINE BLOOD 2+ (NEGATIVE); COLOR, URINE YELLOW (YELLOW); GLUCOSE, URINE (UA) AUTO NEGATIVE (NEGATIVE); KETONE, URINE AUTO NEGATIVE (NEGATIVE); LEUKOCYTE ESTERASE, URINE AUTO 3+ (NEGATIVE); MUCUS, URINE SMALL (NEGATIVE); NITRITE, URINE AUTO POSITIVE (NEGATIVE); PROTEIN, URINE AUTO 1+ mg/dL (NEGATIVE); RBC, URINE AUTO 4 /HPF (0-3); SPECIFIC GRAVITY URINE AUTO 1.009 (1.002-1.035); SQUAMOUS EPITHELIAL CELL UR AU 0 /HPF (0-6); UROBILINOGEN, URINE AUTO 0.2 mg/dL (0.0-2.0); WBC, URINE AUTO TNTC /HPF (0-3)
== END ==
LOC: M LAB REF 17:21
PROVIDERS: ATTEND Physician Assistant Medical
DX: N39.0 Urinary tract infection, site not specified (principal)

== ENCOUNTER → 2023-04-03 | Outpatient (REF) | payer MEDICARE | LOC: M LAB REF 18:24 | PROVIDERS: ATTEND Physician Assistant Medical | DX: B34.9 Viral infection, unspecified (principal) ==

== ENCOUNTER 2023-04-08 09:12 | Emergency (ER) | payer MEDICARE ==
[~2023-04-08] VITALS: Ht 175.3 cm; Wt 97.1 kg
[2023-04-08] MEDS ORDERED: AMOX875T2 (09:24)
[2023-04-08] MEDS ORDERED: DILT120C89 (09:24)
[2023-04-08] MEDS ORDERED: DIGO0.253 (09:24)
[2023-04-08] MEDS ORDERED: ATOR1TAB21 (09:24)
[2023-04-08] MEDS ORDERED: FLEC25TA (09:24)
[2023-04-08 10:55] LABS: INR 1.43
[2023-04-08 11:05] LABS: LIPASE 35 U/L (12-53)
[2023-04-08 11:07] LABS: ALBUMIN 3.3 G/DL (3.2-5.2); ALKALINE PHOSPHATASE 101 U/L (46-116); ALT/SGPT 29 U/L (7.0-40); AST/SGOT 18 U/L (<34); BILIRUBIN,DIRECT 0.3 MG/DL (<0.4); BILIRUBIN,TOTAL 0.7 MG/DL (0.3-1.2); BLOOD UREA NITROGEN 11 MG/DL (9-23); CALCIUM LEVEL 8.7 MG/DL (8.3-10.6); CARBON DIOXIDE LEVEL 31 MMOL/L (20-31); CHLORIDE LEVEL 105 MMOL/L (98-107); CREATININE FOR GFR 0.82 MG/DL (0.55-1.30); GLOMERULAR FILTRATION RATE > 60.0 (>45); GLUCOSE, FASTING 98 MG/DL (74-106); POTASSIUM SERUM 4.2 MMOL/L (3.5-5.1); SODIUM LEVEL 141 MMOL/L (136-145); TOTAL PROTEIN 6.6 G/DL (5.7-8.2)
[2023-04-08 12:20] LABS: BASO # 0.1 10^3/uL (0.0-0.2); BASO % 0.4 % (0.0-1.0); EOS # 0.4 10^3/uL (0.0-0.5); EOS % 3.2 % (0.0-3.0); HEMATOCRIT 40.8 % (36.0-47.0); HEMOGLOBIN 13.7 g/dl (12.0-15.5); LYMPH % 22.3 % (24.0-44.0); MEAN CORPUSCULAR HEMOGLOBIN 30.4 pg (27.0-33.0); MEAN CORPUSCULAR HGB CONC 33.6 g/dl (32.0-36.5); MEAN CORPUSCULAR VOLUME 90.5 fl (80.0-96.0); MONO # 0.9 10^3/uL (0.0-0.8); NEUTROPHILS # 8.9 10^3/uL (1.5-8.5); NEUTROPHILS % 66.9 % (36.0-66.0); PLATELET COUNT, AUTOMATED 339 10^3/uL (150-450); RED BLOOD COUNT 4.51 10^6/uL (4.00-5.40); WHITE BLOOD COUNT 13.3 10^3/uL (4.0-10.0)
[2023-04-08] MEDS ORDERED: NS 1,000 ML IV ONE (12:40)
[2023-04-08] MEDS ORDERED: ISOVUE-370 76% 100ML VIAL As Ordered ONE (12:52)
[2023-04-08 14:45] VITALS: BP 130/84; TEMP 97.6; O2SAT 94
== END 2023-04-08 14:58 | disposition home or self-care (01) ==
LOC: M ED 09:12
DX: K62.5 Hemorrhage of anus and rectum (principal); K52.9 Noninfective gastroenteritis and colitis, unspecified; Z79.02 Long term (current) use of antithrombotics/antiplatelets; Z79.2 Long term (current) use of antibiotics; Z79.899 Other long term (current) drug therapy
CPT/HCPCS: 74177; 80053; 82248; 83605; 83690; 85025; 85384; 85610; 85730; 86850; 86900; 86901; 87507; 96360; 96361; 99284; Q9967

== ENCOUNTER 2023-09-03 11:25 | Emergency (ER) | payer MEDICARE ==
[~2023-09-03] VITALS: Ht 175.3 cm; Wt 94.6 kg
[~2023-09-03 11:25] MED LIST changes: +AMOX875T2; +ATOR1TAB21 PO; +DIGO0.253 PO; +DILT120C89 PO; +FLEC25TA PO
[2023-09-03] MEDS ORDERED: ISOVUE-370 76% 100ML VIAL As Ordered ONE (11:52)
[2023-09-03 12:16] LABS: BASO # 0.1 10^3/uL (0.0-0.2); BASO % 0.8 % (0.0-1.0); EOS # 0.2 10^3/uL (0.0-0.5); EOS % 2.7 % (0.0-3.0); HEMOGLOBIN 14.6 g/dl (12.0-15.5); LYMPH # 2.4 10^3/uL (1.5-5.0); LYMPH % 27.4 % (24.0-44.0); MEAN CORPUSCULAR HEMOGLOBIN 30.6 pg (27.0-33.0); MEAN CORPUSCULAR VOLUME 90.1 fl (80.0-96.0); MONO # 0.6 10^3/uL (0.0-0.8); MONO % 6.4 % (2.0-8.0); NEUTROPHILS # 5.4 10^3/uL (1.5-8.5); NEUTROPHILS % 62.5 % (36.0-66.0); PLATELET COUNT, AUTOMATED 334 10^3/uL (150-450); RED BLOOD COUNT 4.77 10^6/uL (4.00-5.40); WHITE BLOOD COUNT 8.6 10^3/uL (4.0-10.0)
[2023-09-03 12:28] LABS: INR 1.38; PARTIAL THROMBOPLASTIN TIME 33.7 SECONDS (24.8-34.2); PROTHROMBIN TIME 16.5 SECONDS (12.5-14.5)
[2023-09-03 12:57] LABS: ALKALINE PHOSPHATASE 90 U/L (46-116); ALT/SGPT 24 U/L (7.0-40); AST/SGOT 18 U/L (<34); BILIRUBIN,DIRECT 0.2 MG/DL (<0.4); BILIRUBIN,TOTAL 0.9 MG/DL (0.3-1.2); BLOOD UREA NITROGEN 14 MG/DL (9-23); CALCIUM LEVEL 9.7 MG/DL (8.3-10.6); CARBON DIOXIDE LEVEL 29 MMOL/L (20-31); CHLORIDE LEVEL 105 MMOL/L (98-107); GLOMERULAR FILTRATION RATE > 60.0 (>45); GLUCOSE, FASTING 114 MG/DL (74-106); POTASSIUM SERUM 4.2 MMOL/L (3.5-5.1); SODIUM LEVEL 138 MMOL/L (136-145); TOTAL PROTEIN 7.2 G/DL (5.7-8.2)
[2023-09-03] MEDS: MECLIZINE 25 MG TABLET PO ONE (12:57)
[2023-09-03] MEDS: ASPIRIN 81MG CHEW TABLET PO ONE (12:57)
[2023-09-03] MEDS: KETOROLAC 30 MG/ML 1ML VIAL IV ONE (12:58)
[2023-09-03 16:27] VITALS: O2SAT 97
[2023-09-03] MEDS ORDERED: CLOB0.057 TOP (19:03)
[2023-09-03] MEDS ORDERED: XARE20TA PO (19:03)
[2023-09-03] MEDS ORDERED: ACET-897 PO (19:03)
[2023-09-03] MEDS: hydrALAZINE 20MG/ML 1ML VIAL IV ONE (19:04)
[2023-09-03] MEDS ORDERED: HOME MED LIST COMPLETE! XX SCH (19:05)
[2023-09-03 20:38] VITALS: BP 139/80; TEMP 98.1; O2SAT 98
[2023-09-03] MEDS: ACETAMINOPHEN TAB 650MG DOSE (2X325MG) PO ONE (20:44)
== END 2023-09-03 21:15 | disposition short-term general hospital (02) ==
LOC: M ED 11:25
DX: I72.0 Aneurysm of carotid artery (principal); I67.1 Cerebral aneurysm, nonruptured; G45.9 Transient cerebral ischemic attack, unspecified; R00.1 Bradycardia, unspecified; I51.7 Cardiomegaly; Z88.8 Allergy status to other drugs, medicaments and biological substances; Z79.1 Long term (current) use of non-steroidal anti-inflammatories (NSAID); Z79.02 Long term (current) use of antithrombotics/antiplatelets; Z79.899 Other long term (current) drug therapy
CPT/HCPCS: 70450; 70496; 70498; 70551; 71045; 80047; 80048; 80076; 85025; 85610; 85730; 86850; 86900; 86901; 93005; 93041; 94760; 96374; 99285; J1885; Q9967

== ENCOUNTER → 2023-11-22 | Outpatient (CLI) | payer MEDICARE ==
[~2023-11-22] MED LIST changes: +ACET-897 PO; +CLOB0.057 TOP; +XARE20TA PO
== END ==
LOC: M PLAIMG 12:19
PROVIDERS: ATTEND Nurse Practitioner Family
DX: M25.562 Pain in left knee (principal)

== ENCOUNTER → 2023-12-24 | Outpatient (CLI) | payer MEDICARE | LOC: M WHC 08:23 | PROVIDERS: ATTEND Nurse Practitioner Family | DX: Z12.31 Encounter for screening mammogram for malignant neoplasm of breast (principal) ==

== ENCOUNTER → 2024-03-23 | Outpatient (CLI) | payer MEDICARE | LOC: M RAD 07:50 | PROVIDERS: ATTEND Student in an Organized Health Care Education/Training Program | DX: I72.0 Aneurysm of carotid artery (principal) ==

== ENCOUNTER → 2024-05-09 | Outpatient (CLI) | payer MEDICARE ==
[2024-05-09 09:53] LABS: BASO # 0.1 10^3/uL (0.0-0.2); BASO % 0.7 % (0.0-1.0); EOS # 0.2 10^3/uL (0.0-0.5); EOS % 2.6 % (0.0-3.0); HEMATOCRIT 42.9 % (36.0-47.0); HEMOGLOBIN 14.1 g/dl (12.0-15.5); LYMPH # 2.8 10^3/uL (1.5-5.0); LYMPH % 30.9 % (24.0-44.0); MEAN CORPUSCULAR HEMOGLOBIN 30.4 pg (27.0-33.0); MEAN CORPUSCULAR HGB CONC 32.9 g/dl (32.0-36.5); MEAN CORPUSCULAR VOLUME 92.5 fl (80.0-96.0); MONO # 0.7 10^3/uL (0.0-0.8); MONO % 7.5 % (2.0-8.0); NEUTROPHILS # 5.2 10^3/uL (1.5-8.5); NEUTROPHILS % 57.7 % (36.0-66.0); PLATELET COUNT, AUTOMATED 327 10^3/uL (150-450); RED BLOOD COUNT 4.64 10^6/uL (4.00-5.40); WHITE BLOOD COUNT 9.1 10^3/uL (4.0-10.0)
[2024-05-09 10:17] LABS: ALBUMIN 3.4 G/DL (3.2-5.2); ALKALINE PHOSPHATASE 88 U/L (35-104); ALT/SGPT 22 U/L (7.0-40); AST/SGOT 14 U/L (<34); BILIRUBIN,TOTAL 0.5 MG/DL (0.3-1.2); BLOOD UREA NITROGEN 15 MG/DL (9-23); CALCIUM LEVEL 9.4 MG/DL (8.3-10.6); CARBON DIOXIDE LEVEL 30 MMOL/L (20-31); CHLORIDE LEVEL 105 MMOL/L (98-107); CHOLESTEROL LEVEL 246 MG/DL (<200); CREATININE FOR GFR 0.74 MG/DL (0.55-1.30); DIGOXIN LEVEL 0.7 NG/ML (0.8-2.0); GLOMERULAR FILTRATION RATE > 60.0 (>39); GLUCOSE, FASTING 90 MG/DL (74-106); HDL CHOLESTEROL 57.1 MG/DL (>40); LDL CHOLESTEROL 154.9 MG/DL (<100); NON-HDL-C 188.9 MG/DL; POTASSIUM SERUM 4.6 MMOL/L (3.5-5.1); SODIUM LEVEL 142 MMOL/L (136-145); TOTAL PROTEIN 6.8 G/DL (5.7-8.2); TRIGLYCERIDES LEVEL 170 MG/DL (<150)
== END ==
LOC: M LAB 09:12
PROVIDERS: ATTEND Nurse Practitioner Family
DX: I48.0 Paroxysmal atrial fibrillation (principal); E55.9 Vitamin D deficiency, unspecified; E78.5 Hyperlipidemia, unspecified

== ENCOUNTER → 2024-05-25 | Outpatient (REF) | payer MEDICARE ==
[2024-05-25 13:52] LABS: APPEARANCE, URINE HAZY (CLEAR); BACTERIA, URINE AUTO 1+ (NEGATIVE); BILIRUBIN, URINE AUTO NEGATIVE (NEGATIVE); BLOOD, URINE BLOOD NEGATIVE (NEGATIVE); COLOR, URINE YELLOW (YELLOW); GLUCOSE, URINE (UA) AUTO NEGATIVE (NEGATIVE); KETONE, URINE AUTO NEGATIVE (NEGATIVE); LEUKOCYTE ESTERASE, URINE AUTO 3+ (NEGATIVE); MUCUS, URINE SMALL (NEGATIVE); NITRITE, URINE AUTO NEGATIVE (NEGATIVE); PROTEIN, URINE AUTO NEGATIVE (NEGATIVE); RBC, URINE AUTO 2 /HPF (0-3); SPECIFIC GRAVITY URINE AUTO 1.003 (1.002-1.035); SQUAMOUS EPITHELIAL CELL UR AU 9 /HPF (0-6); UROBILINOGEN, URINE AUTO 0.2 mg/dL (0.0-2.0); WBC, URINE AUTO 9 /HPF (0-3)
== END ==
LOC: M SFHCPLAZ 12:20
PROVIDERS: ATTEND Nurse Practitioner Family
DX: R39.9 Unspecified symptoms and signs involving the genitourinary system (principal)

== ENCOUNTER → 2024-07-28 | Outpatient (CLI) | payer MEDICARE ==
[2024-07-28 10:39] LABS: BASO # 0.1 10^3/uL (0.0-0.2); BASO % 0.9 % (0.0-1.0); EOS # 0.3 10^3/uL (0.0-0.5); EOS % 3.7 % (0.0-3.0); HEMATOCRIT 38.9 % (36.0-47.0); HEMOGLOBIN 13.1 g/dl (12.0-15.5); LYMPH # 2.1 10^3/uL (1.5-5.0); MEAN CORPUSCULAR HEMOGLOBIN 30.6 pg (27.0-33.0); MEAN CORPUSCULAR HGB CONC 33.7 g/dl (32.0-36.5); MEAN CORPUSCULAR VOLUME 90.9 fl (80.0-96.0); MONO # 0.8 10^3/uL (0.0-0.8); MONO % 9.5 % (2.0-8.0); NEUTROPHILS # 5.3 10^3/uL (1.5-8.5); NEUTROPHILS % 61.5 % (36.0-66.0); PLATELET COUNT, AUTOMATED 356 10^3/uL (150-450); RED BLOOD COUNT 4.28 10^6/uL (4.00-5.40); WHITE BLOOD COUNT 8.6 10^3/uL (4.0-10.0)
[2024-07-28 11:09] LABS: DIGOXIN LEVEL 1.1 NG/ML (0.8-2.0)
[2024-07-28 11:10] LABS: ALBUMIN 3.5 G/DL (3.2-5.2); BILIRUBIN,TOTAL 0.7 MG/DL (0.3-1.2); CALCIUM LEVEL 9.2 MG/DL (8.3-10.6); CHOLESTEROL RISK RATIO 4.56 (<5); CREATININE FOR GFR 0.75 MG/DL (0.55-1.30); GLOMERULAR FILTRATION RATE 85.6 (>39); HDL CHOLESTEROL 43.2 MG/DL (>40); LDL CHOLESTEROL 111.2 MG/DL (<100); NON-HDL-C 153.8 MG/DL; POTASSIUM SERUM 4.2 MMOL/L (3.5-5.1); TOTAL PROTEIN 6.7 G/DL (5.7-8.2)
== END ==
LOC: M PLALAB 08:52
PROVIDERS: ATTEND Nurse Practitioner Family
DX: I48.0 Paroxysmal atrial fibrillation (principal); E78.5 Hyperlipidemia, unspecified

== ENCOUNTER → 2024-08-03 | Outpatient (CLI) | payer MEDICARE | LOC: M PLAIMG 09:23 | PROVIDERS: ATTEND Physician Assistant | DX: I35.1 Nonrheumatic aortic (valve) insufficiency (principal); I77.810 Thoracic aortic ectasia; I50.30 Unspecified diastolic (congestive) heart failure; I08.0 Rheumatic disorders of both mitral and aortic valves ==

== ENCOUNTER → 2024-11-16 | Outpatient (REF) | payer MEDICARE ==
[~2024-11-16] MED LIST changes: +LIDO1ADH93 TD; -LIDO5DIS41 TD
[2024-11-16 15:41] LABS: APPEARANCE, URINE HAZY (CLEAR); BACTERIA, URINE AUTO 1+ (NEGATIVE); BILIRUBIN, URINE AUTO NEGATIVE (NEGATIVE); BLOOD, URINE BLOOD NEGATIVE (NEGATIVE); GLUCOSE, URINE (UA) AUTO NEGATIVE (NEGATIVE); KETONE, URINE AUTO NEGATIVE (NEGATIVE); LEUKOCYTE ESTERASE, URINE AUTO TRACE (NEGATIVE); NITRITE, URINE AUTO NEGATIVE (NEGATIVE); PROTEIN, URINE AUTO NEGATIVE (NEGATIVE); RBC, URINE AUTO 0 /HPF (0-3); SPECIFIC GRAVITY URINE AUTO 1.008 (1.002-1.035); SQUAMOUS EPITHELIAL CELL UR AU 2 /HPF (0-6); UROBILINOGEN, URINE AUTO 0.2 mg/dL (0.0-2.0); WBC, URINE AUTO 5 /HPF (0-3)
[2024-11-16 16:08] LABS: TOTAL PROTEIN,RANDOM URINE 8.7 MG/DL (0.0-14.0)
[2024-11-16 19:02] LABS: BASO # 0.1 10^3/uL (0.0-0.2); BASO % 0.5 % (0.0-1.0); EOS # 0.2 10^3/uL (0.0-0.5); EOS % 2.1 % (0.0-3.0); LYMPH # 2.5 10^3/uL (1.5-5.0); LYMPH % 25.0 % (24.0-44.0); MONO # 0.9 10^3/uL (0.0-0.8); MONO % 8.8 % (2.0-8.0); NEUTROPHILS # 6.4 10^3/uL (1.5-8.5); NEUTROPHILS % 63.4 % (36.0-66.0); PLATELET COUNT, AUTOMATED 393 10^3/uL (150-450)
[2024-11-16 19:06] LABS: ALT/SGPT 24.0 U/L (7.0-40); AST/SGOT 17.0 U/L (<34); C REACTIVE PROTEIN QUANTITATIV 0.69 MG/DL (<1.0); CALCIUM LEVEL 9.5 MG/DL (8.3-10.6); CARBON DIOXIDE LEVEL 31.0 MMOL/L (20-31); CHLORIDE LEVEL 102.0 MMOL/L (98-107); COMPLEMENT C4 35.4 MG/DL (12-36); CREATININE FOR GFR 0.74 MG/DL (0.55-1.30); GLOMERULAR FILTRATION RATE 87.0 (>39); POTASSIUM SERUM 4.5 MMOL/L (3.5-5.1); SODIUM LEVEL 144.0 MMOL/L (136-145)
[2024-11-16 19:17] LABS: ERYTHROCYTE SEDIMENTATION RATE 25 mm/hr (0-30)
== END ==
LOC: M SFHCRHEU 13:03
PROVIDERS: ATTEND Internal Medicine Rheumatology
DX: R76.8 Other specified abnormal immunological findings in serum (principal); M25.50 Pain in unspecified joint; R53.83 Other fatigue

== ENCOUNTER → 2024-11-20 | Outpatient (CLI) | payer MEDICARE | LOC: M PLAIMG 08:26 | PROVIDERS: ATTEND Internal Medicine Rheumatology | DX: R76.8 Other specified abnormal immunological findings in serum (principal); M25.50 Pain in unspecified joint; R53.83 Other fatigue; M47.812 Spondylosis without myelopathy or radiculopathy, cervical region; M19.071 Primary osteoarthritis, right ankle and foot; M19.072 Primary osteoarthritis, left ankle and foot; M19.041 Primary osteoarthritis, right hand; M19.042 Primary osteoarthritis, left hand ==

== ENCOUNTER → 2024-11-20 | Outpatient (CLI) | payer MEDICARE ==
[2024-11-20 11:32] LABS: BASO # 0.1 10^3/uL (0.0-0.2); BASO % 1.0 % (0.0-1.0); EOS # 0.3 10^3/uL (0.0-0.5); EOS % 3.8 % (0.0-3.0); LYMPH # 2.0 10^3/uL (1.5-5.0); LYMPH % 27.8 % (24.0-44.0); MONO # 0.6 10^3/uL (0.0-0.8); MONO % 8.2 % (2.0-8.0); NEUTROPHILS # 4.2 10^3/uL (1.5-8.5); NEUTROPHILS % 59.1 % (36.0-66.0); PLATELET COUNT, AUTOMATED 381 10^3/uL (150-450)
[2024-11-20 11:38] LABS: ALT/SGPT 19.0 U/L (7.0-40); AST/SGOT 18.0 U/L (<34); CALCIUM LEVEL 8.5 MG/DL (8.3-10.6); CARBON DIOXIDE LEVEL 31.0 MMOL/L (20-31); CHLORIDE LEVEL 105.0 MMOL/L (98-107); CHOLESTEROL LEVEL 184.0 MG/DL (<200); CHOLESTEROL RISK RATIO 4.16 (<5); CREATININE FOR GFR 0.81 MG/DL (0.55-1.30); GLOMERULAR FILTRATION RATE 78.0 (>39); LDL CHOLESTEROL 105.6 MG/DL (<100); NON-HDL-C 139.8 MG/DL; POTASSIUM SERUM 4.1 MMOL/L (3.5-5.1); SODIUM LEVEL 142.0 MMOL/L (136-145); TRIGLYCERIDES LEVEL 171.0 MG/DL (<150)
[2024-11-20 11:42] LABS: FREE T4 0.91 NG/DL (0.89-1.76)
== END ==
LOC: M PLALAB 08:24
PROVIDERS: ATTEND Nurse Practitioner Family
DX: I48.0 Paroxysmal atrial fibrillation (principal); R53.83 Other fatigue; E78.5 Hyperlipidemia, unspecified

== ENCOUNTER → 2024-12-15 | Outpatient (CLI) | payer MEDICARE | LOC: M EKG 09:00 | PROVIDERS: ATTEND Physician Assistant | DX: R00.1 Bradycardia, unspecified (principal); I48.0 Paroxysmal atrial fibrillation ==

== ENCOUNTER 2025-01-10 13:03 | Observation (INO) | payer MEDICARE ==
[~2025-01-10] VITALS: Ht 175.3 cm; Wt 89.0 kg
[2025-01-10] MEDS ORDERED: ATOR80TA59 PO (13:29)
[2025-01-10] MEDS ORDERED: ALPR0.25 PO (13:29)
[2025-01-10] MEDS ORDERED: LEXA1TAB2 PO (13:29)
[2025-01-10] MEDS ORDERED: ISOVUE-370 76% 100 ML VIAL As Ordered ONE (14:03)
[2025-01-10 14:10] LABS: BASO # 0.1 10^3/uL (0.0-0.2); BASO % 0.8 % (0.0-1.0); EOS # 0.3 10^3/uL (0.0-0.5); EOS % 3.5 % (0.0-3.0); LYMPH # 2.3 10^3/uL (1.5-5.0); LYMPH % 29.4 % (24.0-44.0); MONO # 0.6 10^3/uL (0.0-0.8); MONO % 7.2 % (2.0-8.0); NEUTROPHILS # 4.7 10^3/uL (1.5-8.5); NEUTROPHILS % 59.0 % (36.0-66.0); PLATELET COUNT, AUTOMATED 316 10^3/uL (150-450)
[2025-01-10 14:12] VITALS: BP 140/70; O2SAT 97
[2025-01-10 14:26] LABS: INR 1.36
[2025-01-10 14:34] LABS: CALCIUM LEVEL 8.9 MG/DL (8.3-10.6); CARBON DIOXIDE LEVEL 30.0 MMOL/L (20-31); CHLORIDE LEVEL 105.0 MMOL/L (98-107); CREATININE FOR GFR 0.75 MG/DL (0.55-1.30); GLOMERULAR FILTRATION RATE 85.6 (>39); POTASSIUM SERUM 4.0 MMOL/L (3.5-5.1); SODIUM LEVEL 141.0 MMOL/L (136-145)
[2025-01-10 14:55] LABS: DIGOXIN LEVEL 0.9 NG/ML (0.8-2.0)
[2025-01-10] MEDS ORDERED: HOME MED LIST COMPLETE! XX SCH (15:10)
[2025-01-10] MEDS: ASPIRIN 81 MG ENTERIC TABLET PO SCH (20:04)
[2025-01-10] MEDS: RIVAROXABAN 20MG TAB PO SCH (20:04)
[2025-01-10] MEDS: ESCITALOPRAM OXALATE 10 MG TABLET PO SCH (20:04)
[2025-01-10] MEDS: FLECAINIDE 50 MG TABLET PO SCH (20:04)
[2025-01-10] MEDS: ATORVASTATIN 20 MG TAB PO SCH (20:05)
[2025-01-10] MEDS: DOCUSATE SODIUM 100 MG CAPSULE PO SCH (20:05)
[2025-01-11 00:30] VITALS: BP 111/63; TEMP 98.2; O2SAT 97
[2025-01-11] MEDS: ACETAMINOPHEN 325 MG TAB PO PRN (00:35)
[2025-01-11 04:11] VITALS: BP 125/62; TEMP 98.1; O2SAT 96
[2025-01-11 08:41] VITALS: BP 139/62; TEMP 98.1; O2SAT 96
[2025-01-11] MEDS: DIGOXIN 0.25 MG TAB PO SCH (09:37)
[2025-01-11] MEDS ORDERED: ASPI81TAEC PO (09:54)
== END 2025-01-11 11:30 | disposition home or self-care (01) ==
LOC: M ED 13:03 → M ED INP 13:04 → M MS4PR 01-11 00:19
PROVIDERS: ADMIT Internal Medicine Nephrology; ATTEND Internal Medicine Nephrology
DX: G45.9 Transient cerebral ischemic attack, unspecified (principal); R00.1 Bradycardia, unspecified; D35.4 Benign neoplasm of pineal gland; I67.1 Cerebral aneurysm, nonruptured; I10 Essential (primary) hypertension; E78.5 Hyperlipidemia, unspecified; I48.0 Paroxysmal atrial fibrillation; Z79.01 Long term (current) use of anticoagulants; G47.33 Obstructive sleep apnea (adult) (pediatric); R76.0 Raised antibody titer; M05.9 Rheumatoid arthritis with rheumatoid factor, unspecified; R53.83 Other fatigue; M25.50 Pain in unspecified joint; Z79.82 Long term (current) use of aspirin; Z79.899 Other long term (current) drug therapy; Z88.8 Allergy status to other drugs, medicaments and biological substances
CPT/HCPCS: 70450; 70496; 70498; 70544; 70551; 80047; 80048; 80162; 85025; 85610; 85730; 93005; 93041; 94760; 99285; G0378; Q9967

== ENCOUNTER → 2025-01-16 | Outpatient (CLI) | payer MEDICARE ==
[~2025-01-16] MED LIST changes: +ALPR0.25 PO; +ASPI81TAEC PO; +ATOR80TA59 PO; +LEXA1TAB2 PO
== END ==
LOC: M WHC 12:56
PROVIDERS: ATTEND Nurse Practitioner Family
DX: Z12.31 Encounter for screening mammogram for malignant neoplasm of breast (principal)

== ENCOUNTER → 2025-01-18 | Outpatient (CLI) | payer MEDICARE ==
[2025-01-22 11:07] LABS: FLECAINIDE LEVEL 0.22 ug/ml (0.20 - 1.00)
== END ==
LOC: M PLALAB 10:27
PROVIDERS: ATTEND Physician Assistant
DX: I48.0 Paroxysmal atrial fibrillation (principal)

== ENCOUNTER → 2025-03-05 | Outpatient (CLI) | payer MEDICARE ==
[2025-03-05 16:49] LABS: BASO # 0.1 10^3/uL (0.0-0.2); BASO % 0.8 % (0.0-1.0); EOS # 0.3 10^3/uL (0.0-0.5); EOS % 2.8 % (0.0-3.0); LYMPH # 2.9 10^3/uL (1.5-5.0); LYMPH % 31.2 % (24.0-44.0); MONO # 0.7 10^3/uL (0.0-0.8); MONO % 7.5 % (2.0-8.0); NEUTROPHILS # 5.4 10^3/uL (1.5-8.5); NEUTROPHILS % 57.5 % (36.0-66.0); PLATELET COUNT, AUTOMATED 348 10^3/uL (150-450)
[2025-03-05 16:53] LABS: CALCIUM LEVEL 9.3 MG/DL (8.3-10.6); CARBON DIOXIDE LEVEL 32.0 MMOL/L (20-31); CHLORIDE LEVEL 102.0 MMOL/L (98-107); CREATININE FOR GFR 0.8 MG/DL (0.55-1.30); GLOMERULAR FILTRATION RATE 78.7 (>39); POTASSIUM SERUM 4.5 MMOL/L (3.5-5.1); SODIUM LEVEL 141.0 MMOL/L (136-145)
[2025-03-05 17:12] LABS: INR 1.11
== END ==
LOC: M PLALAB 15:44
DX: L67.1 Variations in hair color (principal); Z79.01 Long term (current) use of anticoagulants